=== PATIENT | male | born 1990 | race Caucasian/White ===

== ENCOUNTER 2017-09-19 11:10 | Emergency (ER) | payer OTHER ==
[~2017-09-19] VITALS: Ht 190.5 cm; Wt 108.9 kg
[~2017-09-19 11:10] MED LIST: ACET500; AMOCLA500 PO; AMOX500 PO; ATOM10 MT; Amoxicillin500 MG PO; Bactrim Ds Tab1 EACH PO; CEPH500 PO; CYCL10 PO; ESCI20; HYDACE5 PO; HYDACE5325 PO; HYDGUAL120 PO; IBUP400 PO; NAPR500 PO; PENVK500 PO; PRED10 PO; PRED20 PO; PROM25 PO; RXAMOX500 PO; RXHYD5325 PO; SODPHOSO PR; Zofran Odt4 MG SL; Zofran Odt8 MG SL
[2017-09-19] MEDS ORDERED: CRUTCH4 XX (12:31)
[2017-09-19] MEDS ORDERED: IBUP800 PO (12:31)
== END 2017-09-19 12:42 | disposition home or self-care (01) ==
LOC: ER 11:10
DX: M25.562 Pain in left knee (principal); F17.210 Nicotine dependence, cigarettes, uncomplicated; W01.0XXA Fall on same level from slipping, tripping and stumbling without subsequent striking against object, initial encounter; Y99.0 Civilian activity done for income or pay
CPT/HCPCS: 73564; 99283

== ENCOUNTER 2018-03-13 20:57 | Emergency (ER) | payer OTHER ==
[~2018-03-13] VITALS: Ht 190.5 cm; Wt 108.9 kg
[~2018-03-13 20:57] MED LIST changes: +CRUTCH4 XX; +IBUP800 PO
[2018-03-13] MEDS ORDERED: Veetids 500500 MG PO (23:59)
== END 2018-03-14 00:40 | disposition home or self-care (01) ==
LOC: ER 20:57
DX: K08.89 Other specified disorders of teeth and supporting structures (principal); F17.210 Nicotine dependence, cigarettes, uncomplicated
CPT/HCPCS: 96372; 99282; J1885

== ENCOUNTER 2018-07-04 09:52 | Emergency (ER) | payer OTHER ==
[~2018-07-04] VITALS: Ht 188 cm; Wt 112.9 kg
[~2018-07-04 09:52] MED LIST changes: +Veetids 500500 MG PO
[2018-07-04] MEDS ORDERED: Cephalexin500 M1 PO (11:22)
[2018-07-04] MEDS ORDERED: Bactrim Ds Tab1 EACH PO (11:22)
== END 2018-07-04 11:28 | disposition home or self-care (01) ==
LOC: ER 09:52
DX: L02.412 Cutaneous abscess of left axilla (principal); F17.210 Nicotine dependence, cigarettes, uncomplicated
CPT/HCPCS: 10060; 99283-25

== ENCOUNTER 2018-07-17 01:53 | Emergency (ER) | payer OTHER ==
[~2018-07-17] VITALS: Ht 190.5 cm; Wt 106.6 kg
[~2018-07-17 01:53] MED LIST changes: +Cephalexin500 M1 PO
== END 2018-07-17 02:30 | disposition home or self-care (01) ==
LOC: ER 01:53
DX: K08.89 Other specified disorders of teeth and supporting structures (principal); Z79.899 Other long term (current) drug therapy; F17.210 Nicotine dependence, cigarettes, uncomplicated
CPT/HCPCS: 96372; 99282-25; J1885

== ENCOUNTER 2019-03-01 03:32 | Emergency (ER) | payer OTHER ==
[~2019-03-01] VITALS: Ht 190.5 cm; Wt 106.6 kg
[2019-03-01] MEDS ORDERED: Veetids 500500 MG PO (04:11)
== END 2019-03-01 04:29 | disposition home or self-care (01) ==
LOC: ER 03:32
DX: K08.89 Other specified disorders of teeth and supporting structures (principal); F17.210 Nicotine dependence, cigarettes, uncomplicated
CPT/HCPCS: 96372; 99282-25; J1885

== ENCOUNTER 2019-08-13 09:53 | Emergency (ER) | payer OTHER ==
[~2019-08-13] VITALS: Ht 190.5 cm; Wt 108.9 kg
== END 2019-08-13 10:36 | disposition home or self-care (01) ==
LOC: ER 09:53
DX: H00.012 Hordeolum externum right lower eyelid (principal); F17.210 Nicotine dependence, cigarettes, uncomplicated
CPT/HCPCS: 99283

== ENCOUNTER 2019-12-19 19:30 | Emergency (ER) | payer OTHER ==
[~2019-12-19] VITALS: Ht 190.5 cm; Wt 108.9 kg
[2019-12-19] MEDS ORDERED: Monodox100 MG PO (20:25)
== END 2019-12-19 20:32 | disposition home or self-care (01) ==
LOC: ER 19:30
DX: L02.411 Cutaneous abscess of right axilla (principal); F17.210 Nicotine dependence, cigarettes, uncomplicated
CPT/HCPCS: 10060; 99282-25

== ENCOUNTER 2020-03-26 20:46 | Emergency (ER) | payer OTHER ==
[~2020-03-26] VITALS: Ht 190.5 cm; Wt 108.9 kg
[~2020-03-26 20:46] MED LIST changes: +Monodox100 MG PO
== END 2020-03-27 00:05 | disposition home or self-care (01) ==
LOC: ER 20:46
DX: L02.411 Cutaneous abscess of right axilla (principal); F17.210 Nicotine dependence, cigarettes, uncomplicated
CPT/HCPCS: 10060; 87070; 87075; 87077; 87186; 87205; 99283-25; A9270

== ENCOUNTER 2020-04-25 06:44 | Emergency (ER) | payer OTHER ==
[~2020-04-25] VITALS: Ht 190.5 cm; Wt 102.1 kg
[2020-04-25] MEDS ORDERED: IBUP400 PO (07:30)
[2020-04-25] MEDS ORDERED: PENVK500 PO (07:30)
== END 2020-04-25 07:47 | disposition home or self-care (01) ==
LOC: ER 06:44
DX: K08.89 Other specified disorders of teeth and supporting structures (principal); F17.210 Nicotine dependence, cigarettes, uncomplicated
CPT/HCPCS: 64400; 96372-59; 99282-25; J0696

== ENCOUNTER 2021-02-11 22:44 | Emergency (ER) | payer OTHER ==
[~2021-02-11] VITALS: Ht 190.5 cm; Wt 108.9 kg
[2021-02-12] MEDS ORDERED: AMOX-CLAV 500-1 EAC5 PO (03:29)
== END 2021-02-12 05:06 | disposition home or self-care (01) ==
LOC: ER 22:44
DX: K04.7 Periapical abscess without sinus (principal)
CPT/HCPCS: 10160; 99283-25

== ENCOUNTER → 2021-02-27 | Outpatient (CLI) | payer OTHER ==
[~2021-02-27] MED LIST changes: +AMOX-CLAV 500-1 EAC5 PO
[2021-02-27 13:55] LABS: Percent Saturation 24.9 % (20.0-50.0)
== END | disposition home or self-care (01) ==
LOC: LAB 10:44 → LAB SHORT 10:44
PROVIDERS: Physician Assistant
DX: F41.8 Other specified anxiety disorders (principal); F34.1 Dysthymic disorder; D64.9 Anemia, unspecified; D50.9 Iron deficiency anemia, unspecified
CPT/HCPCS: 82306; 82728; 83540; 83550

== ENCOUNTER 2021-11-06 21:44 | Emergency (ER) | payer OTHER ==
[~2021-11-06] VITALS: Ht 190.5 cm; Wt 111.1 kg
[~2021-11-06 21:44] MED LIST changes: +ABILIFY MYCITE5 M2 PO; +ACET500 PO; +ALBU90OI INH; +BUPR75 PO; +ONDA4ODT MM; +OXYC5 PO; +Robaxin750 MG PO; +Vitamin D1000 UNI1 PO
[2021-11-06] MEDS ORDERED: Monodox100 MG PO (23:12)
[2021-11-06] MEDS ORDERED: MUPIROCIN1 GM TOP (23:12)
== END 2021-11-06 23:28 | disposition home or self-care (01) ==
LOC: ER 21:44
DX: L03.113 Cellulitis of right upper limb (principal); Z79.899 Other long term (current) drug therapy; F17.210 Nicotine dependence, cigarettes, uncomplicated
CPT/HCPCS: 99282; A9270

== ENCOUNTER 2022-11-10 18:10 | Emergency (ER) | payer OTHER ==
[~2022-11-10] VITALS: Ht 190.5 cm; Wt 111.1 kg
[~2022-11-10 18:10] MED LIST changes: +MUPIROCIN1 GM TOP
[2022-11-10 18:19] VITALS: BP 130/76
[2022-11-10] MEDS ORDERED: CEPH500 PO (18:41)
== END 2022-11-10 18:50 | disposition home or self-care (01) ==
LOC: ER 18:10
DX: L02.412 Cutaneous abscess of left axilla (principal); F17.210 Nicotine dependence, cigarettes, uncomplicated
CPT/HCPCS: A9270

== ENCOUNTER 2023-01-19 02:46 | Emergency (ER) | payer OTHER ==
[~2023-01-19] VITALS: Ht 190.5 cm; Wt 111.1 kg
[~2023-01-19 02:46] MED LIST changes: +ALLEGRA ALLERGY60 MG PO; +EPIPEN0.3 MG/0.1 IM; +EPIPEN0.3 MG/0.3 IM; +Prednisone20 MG PO
[2023-01-19 03:03] VITALS: BP 123/85
[2023-01-19 03:26] LABS: BASOPHILS ABSOLUTE AUTO 0.04 K/mm3 (0.00-0.23); BASOPHILS PERCENT AUTO 0 % (0-2); EOSINOPHILS ABSOLUTE AUTO 0.23 K/mm3 (0.00-0.68); EOSINOPHILS PERCENT AUTO 3 % (0-6); Hematocrit 36.8 % (37.0-53.0); Hemoglobin 11.7 g/dL (13.5-17.5); IMMATURE GRAN ABSOLUTE AUTO 0.04 K/mm3 (0.00-0.10); IMMATURE GRAN PERCENT AUTO 0 % (0-1); LYMPHOCYTES PERCENT AUTO 27 % (21-46); MONOCYTES ABSOLUTE AUTO 0.58 K/mm3 (0.16-1.47); MONOCYTES PERCENT AUTO 7 % (4-13); Mean Corpuscular HGB 21.2 pg (26.0-34.0); Mean Corpuscular HGB Conc 31.8 g/dL (31.5-36.5); Mean Corpuscular Volume 67 fL (80-100); NEUTROPHILS ABSOLUTE AUTO 5.63 K/mm3 (1.96-9.15); NEUTROPHILS PERCENT AUTO 63 % (41-73); Platelet Count 256 K/mm3 (150-400); RDW Coefficient Variation 14.8 % (11.7-14.2); RDW Standard Deviation 34.4 fL (35.1-46.3); Red Blood Cell Count 5.52 M/mm3 (4.30-5.90); White Blood Cell Count 8.92 K/mm3 (4.00-11.30)
[2023-01-19 03:27] LABS: Source, Urine Voided
[2023-01-19 03:57] LABS: Albumin, Blood 3.6 g/dL (3.4-5.0); Bilirubin, Total 0.3 mg/dL (0.1-1.0); Bun/Creatinine Ratio 16.5 (12.0-20.0); Calcium, Blood 8.3 mg/dL (8.5-10.1); Creatinine, Blood 0.91 mg/dL (0.60-1.20); Globulin, Blood 3.6 g/dL (2.2-4.0); Potassium, Blood 3.9 mmol/L (3.5-5.5); Total Protein, Blood 7.2 g/dL (6.4-8.2)
[2023-01-19 04:00] LABS: Bilirubin, Urine Neg (Neg); Blood, Urine Neg (Neg); Glucose Qualitative, Urine Neg (Neg); Ketones, Urine 1+ (Neg); Leukocyte Esterase, Urine Neg (Neg); Nitrite, Urine Neg (Neg); Protein, Urine 1+ (Neg); Specific Gravity, Urine 1.025 (1.003-1.022); Urobilinogen, Urine 1+ (Normal)
[2023-01-19 04:05] LABS: Appearance, Urine Clear (Clear); Color, Urine Yellow (P-Yellow)
[2023-01-19] MEDS ORDERED: OXYACE7.5T PO (22:09)
== END 2023-01-19 06:01 | disposition home or self-care (01) ==
LOC: ER 02:46
PROVIDERS: Student in an Organized Health Care Education/Training Program
DX: S30.1XXA Contusion of abdominal wall, initial encounter (principal); F17.210 Nicotine dependence, cigarettes, uncomplicated; X58.XXXA Exposure to other specified factors, initial encounter; R19.09 Other intra-abdominal and pelvic swelling, mass and lump; D68.00 Von Willebrand disease, unspecified; W22.8XXA Striking against or struck by other objects, initial encounter
CPT/HCPCS: 74177; 76705; 80053; 83690; 85025; 86850; 86900; 86901; 96361; 96374-59; 96375; 96376; 99284-25; A9270; J1170; J1885; J2405; J3010; J7030; Q9967

== ENCOUNTER 2024-07-25 10:02 | Emergency (ER) | payer OTHER ==
[~2024-07-25] VITALS: Ht 190.5 cm; Wt 106.6 kg
[~2024-07-25 10:02] MED LIST changes: +OXYACE7.5T PO
[2024-07-25 10:22] VITALS: BP 117/79
[2024-07-25 10:42] LABS: BASOPHILS ABSOLUTE AUTO 0.02 K/mm3 (0.00-0.23); BASOPHILS PERCENT AUTO 0 % (0-2); EOSINOPHILS ABSOLUTE AUTO 0.13 K/mm3 (0.00-0.68); EOSINOPHILS PERCENT AUTO 3 % (0-6); Hematocrit 34.8 % (37.0-53.0); Hemoglobin 11.1 g/dL (13.5-17.5); IMMATURE GRAN ABSOLUTE AUTO 0.03 K/mm3 (0.00-0.10); IMMATURE GRAN PERCENT AUTO 1 % (0-1); LYMPHOCYTES ABSOLUTE AUTO 1.06 K/mm3 (0.84-5.20); LYMPHOCYTES PERCENT AUTO 23 % (21-46); MONOCYTES ABSOLUTE AUTO 0.51 K/mm3 (0.16-1.47); MONOCYTES PERCENT AUTO 11 % (4-13); Mean Corpuscular HGB 21.2 pg (26.0-34.0); Mean Corpuscular HGB Conc 31.9 g/dL (31.5-36.5); Mean Corpuscular Volume 66 fL (80-100); Mean Platelet Volume 9.9 fL (9.1-12.4); NEUTROPHILS ABSOLUTE AUTO 2.81 K/mm3 (1.96-9.15); NEUTROPHILS PERCENT AUTO 62 % (41-73); Platelet Count 218 K/mm3 (150-400); RDW Coefficient Variation 15.1 % (11.7-14.2); RDW Standard Deviation 34.5 fL (35.1-46.3); Red Blood Cell Count 5.24 M/mm3 (4.30-5.90); White Blood Cell Count 4.56 K/mm3 (4.00-11.30)
[2024-07-25 11:23] LABS: Albumin, Blood 3.8 g/dL (3.4-5.0); Bilirubin, Total 0.5 mg/dL (0.1-1.0); Bun/Creatinine Ratio 14.5 (12.0-20.0); Creatinine, Blood 0.96 mg/dL (0.60-1.20); Globulin, Blood 3.9 g/dL (2.2-4.0); Total Protein, Blood 7.7 g/dL (6.4-8.2)
[2024-07-25] MEDS ORDERED: OXYC5 PO (12:59)
== END 2024-07-25 13:03 | disposition home or self-care (01) ==
LOC: ER 10:02
PROVIDERS: Physician Assistant
DX: R10.12 Left upper quadrant pain (principal); K43.2 Incisional hernia without obstruction or gangrene; C34.92 Malignant neoplasm of unspecified part of left bronchus or lung; C79.51 Secondary malignant neoplasm of bone; Z98.890 Other specified postprocedural states
CPT/HCPCS: 71260; 74177; 80053; 85025; 99284-25; Q9967

== ENCOUNTER 2024-08-09 11:48 | Emergency (ER) | payer OTHER ==
[~2024-08-09] VITALS: Ht 190.5 cm; Wt 110.2 kg
[2024-08-09 11:59] VITALS: BP 133/84
[2024-08-09] MEDS ORDERED: Ativan1 MG PO ×2 (12:04)
[2024-08-09 12:44] LABS: Hematocrit 29.7 % (37.0-53.0); Hemoglobin 9.6 g/dL (13.5-17.5); Mean Corpuscular HGB 21.2 pg (26.0-34.0); Mean Corpuscular HGB Conc 32.3 g/dL (31.5-36.5); Mean Corpuscular Volume 66 fL (80-100); Mean Platelet Volume 9.7 fL (9.1-12.4); Platelet Count 125 K/mm3 (150-400); RDW Coefficient Variation 13.7 % (11.7-14.2); RDW Standard Deviation 32.4 fL (35.1-46.3); Red Blood Cell Count 4.52 M/mm3 (4.30-5.90)
[2024-08-09 12:47] LABS: BASOPHILS ABSOLUTE AUTO 0.01 K/mm3 (0.00-0.23); BASOPHILS PERCENT AUTO 2 % (0-2); EOSINOPHILS ABSOLUTE AUTO 0.07 K/mm3 (0.00-0.68); EOSINOPHILS PERCENT AUTO 15 % (0-6); IMMATURE GRAN PERCENT AUTO 0 % (0-1); LYMPHOCYTES ABSOLUTE AUTO 0.26 K/mm3 (0.84-5.20); LYMPHOCYTES PERCENT AUTO 57 % (21-46); MONOCYTES ABSOLUTE AUTO 0.03 K/mm3 (0.16-1.47); MONOCYTES PERCENT AUTO 7 % (4-13); NEUTROPHILS ABSOLUTE AUTO 0.09 K/mm3 (1.96-9.15); NEUTROPHILS PERCENT AUTO 20 % (41-73); White Blood Cell Count 0.46 K/mm3 (4.00-11.30)
[2024-08-09 13:09] LABS: BASOPHILS ABSOLUTE MAN 0.01 K/mm3 (0.00-0.23); BASOPHILS PERCENT MAN 4 % (0-2); EOSINOPHILS ABSOLUTE MAN 0.11 K/mm3 (0.00-0.68); EOSINOPHILS PERCENT MAN 24 % (0-6); LYMPHOCYTES ABSOLUTE MAN 0.16 K/mm3 (0.84-5.20); LYMPHOCYTES PERCENT MAN 36 % (21-46); MONOCYTES ABSOLUTE MAN 0.05 K/mm3 (0.16-1.47); MONOCYTES PERCENT MAN 12 % (4-13); NEUTROPHILS ABSOLUTE MAN 0.11 K/mm3 (1.96-9.15); SEG NEUTROPHILS PERCENT MAN 24 % (41-73); TOTAL CELLS COUNTED 25
[2024-08-09 13:36] LABS: Acetaminophen, Random <2.0 ug/mL (10.0-30.0); Alanine Aminotransfer (ALT/SGP 56 U/L (12-78); Albumin, Blood 3.8 g/dL (3.4-5.0); Albumin/Globulin Ratio 1.1 (0.8-1.8); Alk Phos 62 U/L (50-136); Anion Gap 12 mmol/L (3-11); Aspartate Aminotrans (AST/SGOT 17 U/L (12-37); Bilirubin, Total 0.6 mg/dL (0.1-1.0); Blood Urea Nitrogen 18 mg/dL (8-24); CO2, Blood 24 mmol/L (21-32); Calcium, Blood 8.9 mg/dL (8.5-10.1); Chloride, Blood 109 mmol/L (98-108); Creatinine, Blood 0.72 mg/dL (0.60-1.20); Ethanol (Alcohol), Blood, Med <3 mg/dL; Globulin, Blood 3.6 g/dL (2.2-4.0); Glomerular Filtration Rate 122 (60-); Glucose, Blood 98 mg/dL (70-99); Salicylate <1.7 mg/dL (2.8-20.0); Sodium, Blood 141 mmol/L (136-145); Total Protein, Blood 7.4 g/dL (6.4-8.2)
[2024-08-11] MEDS ORDERED: AMOCLA875 PO ×2 (11:57)
[2024-08-11] MEDS ORDERED: CIPR750 PO ×2 (11:58)
== END 2024-08-09 15:13 | disposition home or self-care (01) ==
LOC: ER 11:48
PROVIDERS: Physician Assistant
DX: R45.851 Suicidal ideations (principal); F17.210 Nicotine dependence, cigarettes, uncomplicated; Z79.899 Other long term (current) drug therapy
CPT/HCPCS: 36415; 80053; 80320; 85025; 99284; G0480

== ENCOUNTER 2024-08-10 20:53 | Observation (INO) | payer OTHER ==
[~2024-08-10] VITALS: Ht 190.5 cm; Wt 111.1 kg
[~2024-08-10 20:53] MED LIST changes: +Ativan1 MG PO
[2024-08-10 21:32] LABS: Hematocrit 30.1 % (37.0-53.0); Hemoglobin 9.9 g/dL (13.5-17.5); Mean Corpuscular HGB 21.2 pg (26.0-34.0); Mean Corpuscular HGB Conc 32.9 g/dL (31.5-36.5); Mean Corpuscular Volume 65 fL (80-100); Mean Platelet Volume 10.1 fL (9.1-12.4); Platelet Count 128 K/mm3 (150-400); RDW Coefficient Variation 13.6 % (11.7-14.2); Red Blood Cell Count 4.67 M/mm3 (4.30-5.90)
[2024-08-10 21:38] LABS: White Blood Cell Count 0.43 K/mm3 (4.00-11.30)
[2024-08-10 21:47] LABS: Bilirubin, Total 0.6 mg/dL (0.1-1.0); Bun/Creatinine Ratio 21.7 (12.0-20.0); Creatinine, Blood 0.79 mg/dL (0.60-1.20); Potassium, Blood 3.5 mmol/L (3.5-5.5)
[2024-08-10 22:01] LABS: BASOPHILS PERCENT MAN 0 % (0-2); EOSINOPHILS PERCENT MAN 0 % (0-6); LYMPHOCYTES ABSOLUTE MAN 0.39 K/mm3 (0.84-5.20); LYMPHOCYTES PERCENT MAN 92 % (21-46); MONOCYTES ABSOLUTE MAN 0.01 K/mm3 (0.16-1.47); MONOCYTES PERCENT MAN 4 % (4-13); NEUTROPHILS ABSOLUTE MAN 0.01 K/mm3 (1.96-9.15); SEG NEUTROPHILS PERCENT MAN 4 % (41-73); TOTAL CELLS COUNTED 25
[2024-08-10] MEDS ORDERED: Meropenem 1,000 MG in NS 100 ML IV ONE (22:10)
[2024-08-10] MEDS ORDERED: Acetaminophen 500 MG Tab PO ONE (22:30)
[2024-08-10] MEDS ORDERED: NS 1,000 ML IV SCH (22:55)
[2024-08-10 23:12] LABS: Adenovirus Detected (NOT DETECT); Bordetella pertussis Not Detected (NOT DETECT); Chlamydophila pneumoniae Not Detected (NOT DETECT); Coronavirus 229E Not Detected (NOT DETECT); Coronavirus HKU1 Not Detected (NOT DETECT); Coronavirus NL63 Not Detected (NOT DETECT); Coronavirus OC43 Not Detected (NOT DETECT); Human Metapneumovirus Not Detected (NOT DETECT); Human Rhinovirus/Enterovirus Not Detected (NOT DETECT); Influenza A/2009-H1 Not Detected (NOT DETECT); Influenza A/H1 Not Detected (NOT DETECT); Influenza A/H3 Not Detected (NOT DETECT); Influenza B Not Detected (NOT DETECT); Mycoplasma pneumoniae Not Detected (NOT DETECT); Parainfluenza Virus 1 Not Detected (NOT DETECT); Parainfluenza Virus 2 Not Detected (NOT DETECT); Parainfluenza Virus 3 Not Detected (NOT DETECT); Parainfluenza Virus 4 Not Detected (NOT DETECT); Respiratory Syncytial Virus Not Detected (NOT DETECT); SARS-Cov-2 (COVID-19), BioFire Not Detected (NOT DETECT)
[2024-08-10 23:47] LABS: Source, Urine Clean Catch
[2024-08-10 23:50] LABS: Bilirubin, Urine Neg (Neg); Blood, Urine Neg (Neg); Glucose Qualitative, Urine Neg (Neg); Ketones, Urine Neg (Neg); Leukocyte Esterase, Urine Neg (Neg); Nitrite, Urine Neg (Neg); Protein, Urine Neg (Neg); Specific Gravity, Urine 1.025 (1.003-1.022); Urobilinogen, Urine NORM (Normal)
[2024-08-10 23:53] LABS: Appearance, Urine Clear (Clear); Color, Urine Yellow (P-Yellow)
[2024-08-11] MEDS ORDERED: LORazepam 1 MG Tab PO PRN (00:40)
[2024-08-11] MEDS ORDERED: Melatonin 3 MG Tab PO PRN (00:45)
[2024-08-11] MEDS ORDERED: Magnesium Hydroxide Conc 10 ML UDC PO PRN (00:45)
[2024-08-11 05:29] LABS: Hematocrit 27.3 % (37.0-53.0); Hemoglobin 8.9 g/dL (13.5-17.5); Mean Corpuscular HGB 21.3 pg (26.0-34.0); Mean Corpuscular HGB Conc 32.6 g/dL (31.5-36.5); Mean Corpuscular Volume 65 fL (80-100); Mean Platelet Volume 9.6 fL (9.1-12.4); Platelet Count 77 K/mm3 (150-400); RDW Coefficient Variation 13.3 % (11.7-14.2); RDW Standard Deviation 31.5 fL (35.1-46.3); Red Blood Cell Count 4.18 M/mm3 (4.30-5.90)
[2024-08-11 05:37] LABS: BASOPHILS PERCENT AUTO 0 % (0-2); EOSINOPHILS ABSOLUTE AUTO 0.03 K/mm3 (0.00-0.68); EOSINOPHILS PERCENT AUTO 6 % (0-6); IMMATURE GRAN PERCENT AUTO 0 % (0-1); LYMPHOCYTES ABSOLUTE AUTO 0.38 K/mm3 (0.84-5.20); LYMPHOCYTES PERCENT AUTO 79 % (21-46); MONOCYTES ABSOLUTE AUTO 0.05 K/mm3 (0.16-1.47); MONOCYTES PERCENT AUTO 10 % (4-13); NEUTROPHILS ABSOLUTE AUTO 0.02 K/mm3 (1.96-9.15); NEUTROPHILS PERCENT AUTO 4 % (41-73)
[2024-08-11 05:38] LABS: White Blood Cell Count 0.48 K/mm3 (4.00-11.30)
[2024-08-11 06:23] LABS: Percent Saturation 52.9 % (20.0-50.0)
[2024-08-11 06:24] LABS: Albumin, Blood 3.6 g/dL (3.4-5.0); Bilirubin, Total 0.6 mg/dL (0.1-1.0); Bun/Creatinine Ratio 18.3 (12.0-20.0); Calcium, Blood 8.8 mg/dL (8.5-10.1); Creatinine, Blood 0.76 mg/dL (0.60-1.20); Globulin, Blood 3.6 g/dL (2.2-4.0); Potassium, Blood 3.7 mmol/L (3.5-5.5); Total Protein, Blood 7.2 g/dL (6.4-8.2)
[2024-08-11] MEDS ORDERED: Meropenem 1,000 MG in NS 100 ML IV SCH (08:00)
[2024-08-11] MEDS ORDERED: Lactobacil 2-S.Thermo-Bifido 1 1 Cap PO SCH (09:00)
[2024-08-11] MEDS ORDERED: Sennosides 8.6 MG Tab PO SCH (09:00)
[2024-08-11] MEDS ORDERED: Enoxaparin 40 MG/0.4 ML SYR SC SCH (09:00)
[2024-08-11 09:20] VITALS: BP 116/68
--- NOTE | 2024-08-11 10:28 | NUR ---
PT ARRIVED TO ROOM AOX4 AND COOPERATIVE OF CARE. PT SETTLED INTO ROOM DENIED ANY PAIN OR CURRENT NEEDS. INDEPENDENT IN ROOM AND CALL LIGHT WITHIN REACH. WILL CONTINUE TO MONITOR.
[2024-08-11] MEDS ORDERED: AMOCLA875 PO (11:57)
[2024-08-11] MEDS ORDERED: CIPR750 PO (11:58)
--- NOTE | 2024-08-11 12:28 | NUR ---
PT DISCHARGED AT 1210. ALL PAPERWORK REVIEWED AND EDUCATIONAL MATERIAL SENT. PT HAS BEEN AOX4 AND COOPERATIVE OF CARE. PT REFUSED WHEELCHAIR ESCORT AND WALKED OUT WITH HIS FATHER TO TRANSPORT HIM HOME.
== END 2024-08-11 12:14 | disposition home or self-care (01) ==
LOC: ER 20:53 → MEDS 20:54 → ER 08-11 01:02 → ERHOLD 08-11 01:02 → MEDS 08-11 08:52 → ERHOLD 08-11 09:10 → MEDS 08-11 09:10
PROVIDERS: Emergency Medicine; Family Medicine; Physician Assistant; ADMIT Student in an Organized Health Care Education/Training Program
DX: D70.9 Neutropenia, unspecified (principal); R50.81 Fever presenting with conditions classified elsewhere; D68.00 Von Willebrand disease, unspecified; C49.9 Malignant neoplasm of connective and soft tissue, unspecified; C78.00 Secondary malignant neoplasm of unspecified lung; F17.210 Nicotine dependence, cigarettes, uncomplicated; Z79.899 Other long term (current) drug therapy; Z91.038 Other insect allergy status
CPT/HCPCS: 0202U; 36415; 71045; 80053; 81003; 82728; 83540; 83550; 83605; 84145; 85025; 87040; 96365; 96366; 96372; 96376; 99285-25; A9270; G0378; J1650; J2185; J7030

== ENCOUNTER 2024-08-20 00:45 | Day surgery (SDC) | payer OTHER ==
[~2024-08-20 00:45] MED LIST changes: +AMOCLA875 PO; +CIPR750 PO
[2024-08-20 14:17] VITALS: BP 145/87
[2024-08-20] MEDS ORDERED: HYDROCODONE-AC1 EA19 PO (14:29)
[2024-08-20] MEDS ORDERED: PROC5 PO (14:31)
[2024-08-20] MEDS ORDERED: ONDA4ODT (14:32)
[2024-08-20 15:04] LABS: BASOPHILS ABSOLUTE AUTO 0.01 K/mm3 (0.00-0.23); BASOPHILS PERCENT AUTO 0 % (0-2); EOSINOPHILS ABSOLUTE AUTO 0.01 K/mm3 (0.00-0.68); EOSINOPHILS PERCENT AUTO 0 % (0-6); Hematocrit 27.7 % (37.0-53.0); IMMATURE GRAN ABSOLUTE AUTO 0.19 K/mm3 (0.00-0.10); IMMATURE GRAN PERCENT AUTO 5 % (0-1); LYMPHOCYTES ABSOLUTE AUTO 0.74 K/mm3 (0.84-5.20); LYMPHOCYTES PERCENT AUTO 18 % (21-46); MONOCYTES PERCENT AUTO 12 % (4-13); Mean Corpuscular HGB 21.4 pg (26.0-34.0); Mean Corpuscular HGB Conc 32.5 g/dL (31.5-36.5); Mean Corpuscular Volume 66 fL (80-100); Mean Platelet Volume 9.1 fL (9.1-12.4); NEUTROPHILS ABSOLUTE AUTO 2.58 K/mm3 (1.96-9.15); NEUTROPHILS PERCENT AUTO 64 % (41-73); NRBC ABSOLUTE 0.03 K/mm3 (0.00-0.02); NRBC Auto 0.7 /100 WBC (0.0-0.2); Platelet Count 312 K/mm3 (150-400); RDW Coefficient Variation 13.5 % (11.7-14.2); RDW Standard Deviation 31.3 fL (35.1-46.3); White Blood Cell Count 4.03 K/mm3 (4.00-11.30)
[2024-08-20 15:27] LABS: Albumin, Blood 3.7 g/dL (3.4-5.0); Bilirubin, Total 0.3 mg/dL (0.1-1.0); Bun/Creatinine Ratio 16.8 (12.0-20.0); Calcium, Blood 8.9 mg/dL (8.5-10.1); Creatinine, Blood 0.66 mg/dL (0.60-1.20); Globulin, Blood 3.8 g/dL (2.2-4.0); Potassium, Blood 3.8 mmol/L (3.5-5.5); Total Protein, Blood 7.5 g/dL (6.4-8.2)
--- NOTE | 2024-08-20 18:07 | NUR ---
LAB RESULTS FROM TODAY FAXED TO DR. GLASS'S OFFICE.
== END 2024-08-20 14:36 | disposition home or self-care (01) ==
LOC: ATC 00:45
PROVIDERS: Registered Nurse Oncology
DX: C47 Malignant neoplasm of peripheral nerves and autonomic nervous system (principal); Z87.891 Personal history of nicotine dependence; Z91.030 Bee allergy status
CPT/HCPCS: 36591; 80053; 85025; J1642

== ENCOUNTER 2024-09-02 21:03 | Observation (INO) | payer OTHER ==
[~2024-09-02] VITALS: Ht 190.5 cm; Wt 103.0 kg
[~2024-09-02 21:03] MED LIST changes: +HYDROCODONE-AC1 EA19 PO; +ONDA4ODT; +PROC5 PO
[2024-09-02 22:11] LABS: Hematocrit 18.6 % (37.0-53.0); Hemoglobin 6.2 g/dL (13.5-17.5); Mean Corpuscular HGB 21.6 pg (26.0-34.0); Mean Corpuscular HGB Conc 33.3 g/dL (31.5-36.5); Mean Corpuscular Volume 65 fL (80-100); Mean Platelet Volume 10.3 fL (9.1-12.4); RDW Coefficient Variation 14.1 % (11.7-14.2); RDW Standard Deviation 31.4 fL (35.1-46.3); Red Blood Cell Count 2.87 M/mm3 (4.30-5.90)
[2024-09-02 22:13] LABS: BASOPHILS PERCENT AUTO 0 % (0-2); EOSINOPHILS ABSOLUTE AUTO 0.01 K/mm3 (0.00-0.68); EOSINOPHILS PERCENT AUTO 2 % (0-6); IMMATURE GRAN ABSOLUTE AUTO 0.01 K/mm3 (0.00-0.10); IMMATURE GRAN PERCENT AUTO 2 % (0-1); LYMPHOCYTES ABSOLUTE AUTO 0.29 K/mm3 (0.84-5.20); LYMPHOCYTES PERCENT AUTO 63 % (21-46); MONOCYTES ABSOLUTE AUTO 0.06 K/mm3 (0.16-1.47); MONOCYTES PERCENT AUTO 13 % (4-13); NEUTROPHILS ABSOLUTE AUTO 0.09 K/mm3 (1.96-9.15); NEUTROPHILS PERCENT AUTO 20 % (41-73)
[2024-09-02 22:14] LABS: White Blood Cell Count 0.46 K/mm3 (4.00-11.30)
[2024-09-02 22:15] LABS: Platelet Count 40 K/mm3 (150-400)
[2024-09-02] MEDS ORDERED: Cefepime HCl 2,000 MG in NS 100 ML IV ONE (22:25)
[2024-09-02 22:30] LABS: Albumin, Blood 3.6 g/dL (3.4-5.0); Albumin/Globulin Ratio 0.9 (0.8-1.8); Bilirubin, Total 0.5 mg/dL (0.1-1.0); Bun/Creatinine Ratio 18.9 (12.0-20.0); Calcium, Blood 8.9 mg/dL (8.5-10.1); Creatinine, Blood 0.79 mg/dL (0.60-1.20); Globulin, Blood 3.9 g/dL (2.2-4.0); Potassium, Blood 3.5 mmol/L (3.5-5.5); Total Protein, Blood 7.5 g/dL (6.4-8.2)
[2024-09-02] MEDS ORDERED: Vancomycin HCL 2,500 MG in NS 500 ML IV ONE (23:00)
[2024-09-02 23:17] LABS: International Normalized Ratio 1.07; Prothrombin Time Results 11.4 Sec (9.7-11.5)
[2024-09-03] VITALS (10 sets, daily range): BP systolic 102–121; BP diastolic 60–71
[2024-09-03 00:15] LABS: Source, Urine Clean Catch
[2024-09-03 00:27] LABS: Appearance, Urine Clear (Clear); Bilirubin, Urine Neg (Neg); Blood, Urine Neg (Neg); Color, Urine Amber (P-Yellow); Glucose Qualitative, Urine Neg (Neg); Ketones, Urine Neg (Neg); Leukocyte Esterase, Urine Neg (Neg); Nitrite, Urine Neg (Neg); Protein, Urine 1+ (Neg); Urobilinogen, Urine NORM (Normal)
[2024-09-03 00:48] LABS: Influenza A, PCR NEGATIVE (NEGATIVE); Influenza B, PCR NEGATIVE (NEGATIVE); Resp Syncytial Virus, PCR NEGATIVE (NEGATIVE); SARS-Cov-2 (COVID-19) PCR, MMC NEGATIVE (NEGATIVE)
[2024-09-03] MEDS ORDERED: NS 1,000 ML IV SCH (02:00)
[2024-09-03] MEDS ORDERED: Acetaminophen 325 MG TABLET PO PRN (02:00)
[2024-09-03] MEDS ORDERED: FLU VACC TS2024-25(6MOS UP)/PF 45 MCG/0.5 ML SYRINGE IM ONE (02:05)
[2024-09-03] MEDS ORDERED: Ondansetron HCl 2 MG / ML 2ML Vial IV PRN (02:05)
[2024-09-03] MEDS ORDERED: ONDA4 PO (03:04)
[2024-09-03] MEDS ORDERED: PROM25 PO (03:05)
[2024-09-03] MEDS ORDERED: PROC5 PO (03:09)
[2024-09-03 07:26] LABS: Hematocrit 19.9 % (37.0-53.0); Hemoglobin 6.5 g/dL (13.5-17.5); Mean Corpuscular HGB 22.4 pg (26.0-34.0); Mean Corpuscular HGB Conc 32.7 g/dL (31.5-36.5); Mean Corpuscular Volume 69 fL (80-100); Mean Platelet Volume 11.6 fL (9.1-12.4); RDW Coefficient Variation 17.2 % (11.7-14.2); RDW Standard Deviation 39.6 fL (35.1-46.3)
[2024-09-03 07:47] LABS: BASOPHILS ABSOLUTE AUTO 0.01 K/mm3 (0.00-0.23); BASOPHILS PERCENT AUTO 2 % (0-2); EOSINOPHILS ABSOLUTE AUTO 0.01 K/mm3 (0.00-0.68); EOSINOPHILS PERCENT AUTO 2 % (0-6); IMMATURE GRAN ABSOLUTE AUTO 0.01 K/mm3 (0.00-0.10); IMMATURE GRAN PERCENT AUTO 2 % (0-1); LYMPHOCYTES ABSOLUTE AUTO 0.28 K/mm3 (0.84-5.20); LYMPHOCYTES PERCENT AUTO 51 % (21-46); MONOCYTES ABSOLUTE AUTO 0.09 K/mm3 (0.16-1.47); MONOCYTES PERCENT AUTO 16 % (4-13); NEUTROPHILS ABSOLUTE AUTO 0.15 K/mm3 (1.96-9.15); NEUTROPHILS PERCENT AUTO 27 % (41-73); Platelet Count 32 K/mm3 (150-400); White Blood Cell Count 0.55 K/mm3 (4.00-11.30)
[2024-09-03 07:50] LABS: Albumin, Blood 3.1 g/dL (3.4-5.0); Albumin/Globulin Ratio 0.8 (0.8-1.8); Bilirubin, Total 0.8 mg/dL (0.1-1.0); Bun/Creatinine Ratio 26.5 (12.0-20.0); Calcium, Blood 8.2 mg/dL (8.5-10.1); Creatinine, Blood 0.64 mg/dL (0.60-1.20); Globulin, Blood 3.8 g/dL (2.2-4.0); Potassium, Blood 3.1 mmol/L (3.5-5.5); Total Protein, Blood 6.9 g/dL (6.4-8.2)
--- NOTE | 2024-09-03 07:55 | NUR ---
SHIFT SUMMARY; AFTER ADMIT, PATIENT SLEPT SOUNDLY, DENIED NEEDING PAIM MEDS, PRBC FINISHED AT 0340. NS/ 100ML/HR RESTARTED. TELE SR 82.PLACED IN REVERSE ISOLATION. FIRST MORNING LABS WERE DRAWN THRU PORT WITH IV FLUIDS RUNNING. FATHER HERE ALL NIGHT.
[2024-09-03] MEDS ORDERED: Cefepime HCl 1,000 MG in NS 100 ML IV SCH (08:00)
[2024-09-03 08:12] LABS: BAND PERCENT MAN 8 % (0-8); BASOPHILS ABSOLUTE MAN 0.02 K/mm3 (0.00-0.23); BASOPHILS PERCENT MAN 4 % (0-2); EOSINOPHILS PERCENT MAN 0 % (0-6); LYMPHOCYTES % ATYPICAL MANUAL 4 % (0-0); LYMPHOCYTES PERCENT MAN 52 % (21-46); MONOCYTES ABSOLUTE MAN 0.04 K/mm3 (0.16-1.47); MONOCYTES PERCENT MAN 8 % (4-13); NEUTROPHILS ABSOLUTE MAN 0.17 K/mm3 (1.96-9.15); SEG NEUTROPHILS PERCENT MAN 24 % (41-73); TOTAL CELLS COUNTED 25
[2024-09-03] MEDS ORDERED: NS 250 ML IV PRN (08:20)
[2024-09-03] MEDS ORDERED: NS 500 ML IV SCH (08:20)
[2024-09-03] MEDS ORDERED: Potassium Chloride 20 MEQ TabCR PO ONE (10:35)
[2024-09-03] MEDS ORDERED: Petrolatum Ointment 5 gm TOP SCH (11:00)
[2024-09-03] MEDS ORDERED: HyDROXyzine HCl 10 MG Tab PO PRN (11:40)
[2024-09-03 13:28] LABS: Hematocrit 21.6 % (37.0-53.0); Hemoglobin 7.3 g/dL (13.5-17.5); Mean Corpuscular HGB 23.2 pg (26.0-34.0); Mean Corpuscular HGB Conc 33.8 g/dL (31.5-36.5); Mean Corpuscular Volume 69 fL (80-100); RDW Coefficient Variation 17.9 % (11.7-14.2); RDW Standard Deviation 42.6 fL (35.1-46.3); Red Blood Cell Count 3.15 M/mm3 (4.30-5.90)
[2024-09-03 13:34] LABS: BASOPHILS ABSOLUTE AUTO 0.01 K/mm3 (0.00-0.23); BASOPHILS PERCENT AUTO 2 % (0-2); EOSINOPHILS ABSOLUTE AUTO 0.01 K/mm3 (0.00-0.68); EOSINOPHILS PERCENT AUTO 2 % (0-6); IMMATURE GRAN ABSOLUTE AUTO 0.01 K/mm3 (0.00-0.10); IMMATURE GRAN PERCENT AUTO 2 % (0-1); LYMPHOCYTES ABSOLUTE AUTO 0.23 K/mm3 (0.84-5.20); LYMPHOCYTES PERCENT AUTO 38 % (21-46); MONOCYTES PERCENT AUTO 16 % (4-13); NEUTROPHILS ABSOLUTE AUTO 0.25 K/mm3 (1.96-9.15); NEUTROPHILS PERCENT AUTO 41 % (41-73)
[2024-09-03 13:37] LABS: Platelet Count 30 K/mm3 (150-400); White Blood Cell Count 0.61 K/mm3 (4.00-11.30)
[2024-09-03 13:56] LABS: Adenovirus Detected (NOT DETECT); Bordetella pertussis Not Detected (NOT DETECT); Chlamydophila pneumoniae Not Detected (NOT DETECT); Coronavirus 229E Not Detected (NOT DETECT); Coronavirus HKU1 Not Detected (NOT DETECT); Coronavirus NL63 Not Detected (NOT DETECT); Coronavirus OC43 Not Detected (NOT DETECT); Human Metapneumovirus Not Detected (NOT DETECT); Human Rhinovirus/Enterovirus Not Detected (NOT DETECT); Influenza A/2009-H1 Not Detected (NOT DETECT); Influenza A/H1 Not Detected (NOT DETECT); Influenza A/H3 Not Detected (NOT DETECT); Influenza B Not Detected (NOT DETECT); Mycoplasma pneumoniae Not Detected (NOT DETECT); Parainfluenza Virus 1 Not Detected (NOT DETECT); Parainfluenza Virus 2 Not Detected (NOT DETECT); Parainfluenza Virus 3 Not Detected (NOT DETECT); Parainfluenza Virus 4 Not Detected (NOT DETECT); Respiratory Syncytial Virus Not Detected (NOT DETECT); SARS-Cov-2 (COVID-19), BioFire Not Detected (NOT DETECT)
--- NOTE | 2024-09-03 19:54 | NUR ---
SHIFT SUMMARY: PT A&O X4. PT VERY ANXIOUS AND IRRITABLE THIS SHIFT. ANXIETY MEDS ORDERED AND PROVIDED THIS SHIFT. PT VERY ANXIOUS TO GO HOME. HOSPITALIST AWARE. HGB LOW WITH AM LABS. 1 UNIT PRBC PROVIDED WITH REPEAT HGB OF 7.3. REPIRATORY PANEL COMPLETED THIS SHIFT. PT POSITIVE FOR ADENOVIRUS. DROPLET AND NEUTROPENIC PRECAUTIONS IN PLACE. PT HAS MEDIPORT INFUSING TKO. INDEPENDENT IN ROOM. CALL LIGHT IN REACH. BED IN LOWEST POSITION. FAMILY AT BEDSIDE.
[2024-09-04 05:38] LABS: BASOPHILS ABSOLUTE AUTO 0.02 K/mm3 (0.00-0.23); BASOPHILS PERCENT AUTO 2 % (0-2); Hematocrit 21.2 % (37.0-53.0); Hemoglobin 7.2 g/dL (13.5-17.5); Mean Corpuscular HGB 23.2 pg (26.0-34.0); Mean Corpuscular Volume 68 fL (80-100); Mean Platelet Volume 11.7 fL (9.1-12.4); RDW Standard Deviation 39.8 fL (35.1-46.3); Red Blood Cell Count 3.11 M/mm3 (4.30-5.90); White Blood Cell Count 1.35 K/mm3 (4.00-11.30)
[2024-09-04 05:46] LABS: EOSINOPHILS ABSOLUTE AUTO 0.01 K/mm3 (0.00-0.68); EOSINOPHILS PERCENT AUTO 1 % (0-6); IMMATURE GRAN ABSOLUTE AUTO 0.02 K/mm3 (0.00-0.10); IMMATURE GRAN PERCENT AUTO 2 % (0-1); LYMPHOCYTES ABSOLUTE AUTO 0.38 K/mm3 (0.84-5.20); LYMPHOCYTES PERCENT AUTO 28 % (21-46); MONOCYTES PERCENT AUTO 15 % (4-13); NEUTROPHILS ABSOLUTE AUTO 0.72 K/mm3 (1.96-9.15); NEUTROPHILS PERCENT AUTO 53 % (41-73)
[2024-09-04 05:50] LABS: Platelet Count 26 K/mm3 (150-400)
[2024-09-04 06:17] LABS: Albumin, Blood 3.1 g/dL (3.4-5.0); Albumin/Globulin Ratio 0.8 (0.8-1.8); Bilirubin, Total 0.3 mg/dL (0.1-1.0); Calcium, Blood 8.4 mg/dL (8.5-10.1); Creatinine, Blood 0.68 mg/dL (0.60-1.20); Globulin, Blood 3.7 g/dL (2.2-4.0); Potassium, Blood 3.5 mmol/L (3.5-5.5); Total Protein, Blood 6.8 g/dL (6.4-8.2)
[2024-09-04 07:42] VITALS: BP 111/70
--- NOTE | 2024-09-04 08:11 | NUR ---
SUMMARY: PT A/OX4, IS INDEPENDENT IN ROOM AND CALLS APPROPRIATELY TO SPECIFY NEEDS. HE BEGAN SHIFT ANXIOUS, TEARFUL AND FRUSTRATED RE: CONTINUED HOSPITALIZATION D/T THE IMPRESSION HE'D BE DISCHARGING TONIGHT. HE CALMED WHEN PROVIDED OPPORTUNITY TO WALK HALLS W/HIS DAD AND UPON ANSWERING Q'S AND CONCERNS REGARDING PLAN OF CARE AND TRENDING LAB VALUES. HGB HAS IMPROVED FOLLOWING RECENT PRBC TRANSFUSIONS BUT PLATELETS CONTINUE FALLING, NOW CRITICAL AT 26. MADE AWARE W/NO NEW ORDERS RECEIVED. HE REMAINS NSR ON TELE AT 70'S-80'S BPM. VSS/AFEBRILE, NO ACUTE CHANGES. PT HOPEFUL TO D/C HOME TODAY. REPORT PROVIDED TO DAY RN.
[2024-09-04 12:12] VITALS: BP 107/62
[2024-09-04 12:31] LABS: Hematocrit 21.1 % (37.0-53.0); Hemoglobin 7.1 g/dL (13.5-17.5); Mean Corpuscular HGB 22.8 pg (26.0-34.0); Mean Corpuscular HGB Conc 33.6 g/dL (31.5-36.5); Mean Corpuscular Volume 68 fL (80-100); RDW Standard Deviation 40.1 fL (35.1-46.3); Red Blood Cell Count 3.11 M/mm3 (4.30-5.90); White Blood Cell Count 1.57 K/mm3 (4.00-11.30)
[2024-09-04 12:47] LABS: Platelet Count 26 K/mm3 (150-400)
[2024-09-04 13:02] LABS: Albumin, Blood 3.1 g/dL (3.4-5.0); Albumin/Globulin Ratio 0.8 (0.8-1.8); Bilirubin, Total 0.2 mg/dL (0.1-1.0); Bun/Creatinine Ratio 20.6 (12.0-20.0); Calcium, Blood 8.9 mg/dL (8.5-10.1); Creatinine, Blood 0.63 mg/dL (0.60-1.20); Globulin, Blood 3.7 g/dL (2.2-4.0); Potassium, Blood 3.8 mmol/L (3.5-5.5); Total Protein, Blood 6.8 g/dL (6.4-8.2)
[2024-09-04 13:47] LABS: BAND PERCENT MAN 6 % (0-8); BASOPHILS ABSOLUTE MAN 0.01 K/mm3 (0.00-0.23); BASOPHILS PERCENT MAN 1 % (0-2); EOSINOPHILS ABSOLUTE MAN 0.03 K/mm3 (0.00-0.68); EOSINOPHILS PERCENT MAN 2 % (0-6); LYMPHOCYTES % ATYPICAL MANUAL 1 % (0-0); LYMPHOCYTES ABSOLUTE MAN 0.39 K/mm3 (0.84-5.20); LYMPHOCYTES PERCENT MAN 24 % (21-46); MONOCYTES PERCENT MAN 13 % (4-13); NEUTROPHILS ABSOLUTE MAN 0.92 K/mm3 (1.96-9.15); SEG NEUTROPHILS PERCENT MAN 53 % (41-73); TOTAL CELLS COUNTED 100
--- NOTE | 2024-09-04 15:45 | NUR ---
DISCHARGE NOTE PT DISCHARGED HOME. PT REFUSED W/C OUT. PT ACCOMPANIED BY THIS RN. SHELBY DEACCESSED AND IV REMOVED. REVIEWED MEDICATIONS. CARE ONGOING.
--- NOTE | 2024-09-04 16:19 | NUR ---
PT DISCHARGED HOME AGAINST MEDICAL RECOMMENDATION. PT RECOMMENDED TO STAY ATLEAST ONE ADDITIONAL NIGHT FOR ANTIBIOTIC THERAPY BLOOD CULTURES ARE STILL PENDING. PT VERBALIZED UNDERSTANDING OF THE RISKS OF EARLY D/C, BUT STATED THAT HE WOULD NOT BE STAYING ANY LONGER. DISCHARGE INSTRUCTIONS DISCUSSED WITH PT BY FELLOW RN. PER RN, NO QUESTIONS OR CONCERNS AT TIME OF DISCHARGE.
== END 2024-09-04 15:41 | disposition home or self-care (01) ==
LOC: ER 21:03 → MEDS 21:04 → ERHOLD 09-03 01:58 → MEDS 09-03 01:58 → ER 09-03 01:58 → MEDS 09-03 02:58 → ERHOLD 09-03 02:58 → MEDS 09-04 15:41
PROVIDERS: Family Medicine; Internal Medicine; Registered Nurse; Student in an Organized Health Care Education/Training Program; ADMIT Internal Medicine
DX: D70.9 Neutropenia, unspecified (principal); R50.81 Fever presenting with conditions classified elsewhere; D61.818 Other pancytopenia; D64.9 Anemia, unspecified; D68.00 Von Willebrand disease, unspecified; C34.92 Malignant neoplasm of unspecified part of left bronchus or lung; C79.51 Secondary malignant neoplasm of bone; F17.210 Nicotine dependence, cigarettes, uncomplicated; Z79.899 Other long term (current) drug therapy; Z91.038 Other insect allergy status
CPT/HCPCS: 0202U; 0241U; 36415; 36430; 71046; 80053; 83605; 83880; 85025; 85610; 85730; 86850; 86900; 86901; 86923; 87040; 96365; 96375; 99285-25; A9270; G0378; J0692; J1642; J3370; J7040; J7050; P9016

== ENCOUNTER 2024-09-10 02:20 | Day surgery (SDC) | payer OTHER ==
[~2024-09-10 02:20] MED LIST changes: +ONDA4 PO
[2024-09-10 16:18] VITALS: BP 111/72
[2024-09-10 16:51] LABS: BASOPHILS ABSOLUTE AUTO 0.01 K/mm3 (0.00-0.23); BASOPHILS PERCENT AUTO 0 % (0-2); EOSINOPHILS ABSOLUTE AUTO 0.02 K/mm3 (0.00-0.68); EOSINOPHILS PERCENT AUTO 1 % (0-6); Hemoglobin 7.8 g/dL (13.5-17.5); IMMATURE GRAN ABSOLUTE AUTO 0.31 K/mm3 (0.00-0.10); IMMATURE GRAN PERCENT AUTO 8 % (0-1); LYMPHOCYTES ABSOLUTE AUTO 0.72 K/mm3 (0.84-5.20); LYMPHOCYTES PERCENT AUTO 20 % (21-46); MONOCYTES ABSOLUTE AUTO 0.63 K/mm3 (0.16-1.47); MONOCYTES PERCENT AUTO 17 % (4-13); Mean Corpuscular HGB 22.7 pg (26.0-34.0); Mean Corpuscular HGB Conc 32.5 g/dL (31.5-36.5); Mean Corpuscular Volume 70 fL (80-100); Mean Platelet Volume 9.8 fL (9.1-12.4); NEUTROPHILS ABSOLUTE AUTO 1.98 K/mm3 (1.96-9.15); NEUTROPHILS PERCENT AUTO 54 % (41-73); NRBC ABSOLUTE 0.09 K/mm3 (0.00-0.02); NRBC Auto 2.5 /100 WBC (0.0-0.2); Platelet Count 178 K/mm3 (150-400); RDW Coefficient Variation 18.6 % (11.7-14.2); RDW Standard Deviation 43.4 fL (35.1-46.3); Red Blood Cell Count 3.44 M/mm3 (4.30-5.90); White Blood Cell Count 3.67 K/mm3 (4.00-11.30)
== END 2024-09-10 16:28 | disposition home or self-care (01) ==
LOC: ATC 02:20
PROVIDERS: Registered Nurse Oncology
DX: C47 Malignant neoplasm of peripheral nerves and autonomic nervous system (principal); C78.00 Secondary malignant neoplasm of unspecified lung; D64.9 Anemia, unspecified; Z87.891 Personal history of nicotine dependence; Z79.899 Other long term (current) drug therapy; Z91.038 Other insect allergy status
CPT/HCPCS: 36591; 85025; J1642

== ENCOUNTER 2024-09-24 18:39 | Observation (INO) | payer OTHER ==
[~2024-09-24] VITALS: Ht 190.5 cm; Wt 100.0 kg
[2024-09-24 21:17] LABS: Mean Corpuscular HGB 23.8 pg (26.0-34.0); Mean Corpuscular HGB Conc 33.7 g/dL (31.5-36.5); Mean Corpuscular Volume 70 fL (80-100); Mean Platelet Volume 10.2 fL (9.1-12.4); RDW Standard Deviation 49.2 fL (35.1-46.3)
[2024-09-24 21:21] LABS: BASOPHILS ABSOLUTE AUTO 0.01 K/mm3 (0.00-0.23); BASOPHILS PERCENT AUTO 1 % (0-2); EOSINOPHILS ABSOLUTE AUTO 0.03 K/mm3 (0.00-0.68); EOSINOPHILS PERCENT AUTO 3 % (0-6); IMMATURE GRAN ABSOLUTE AUTO 0.01 K/mm3 (0.00-0.10); IMMATURE GRAN PERCENT AUTO 1 % (0-1); LYMPHOCYTES ABSOLUTE AUTO 0.38 K/mm3 (0.84-5.20); LYMPHOCYTES PERCENT AUTO 38 % (21-46); MONOCYTES ABSOLUTE AUTO 0.16 K/mm3 (0.16-1.47); MONOCYTES PERCENT AUTO 16 % (4-13); NEUTROPHILS PERCENT AUTO 40 % (41-73)
[2024-09-24 21:23] LABS: Hematocrit 16.9 % (37.0-53.0); Hemoglobin 5.7 g/dL (13.5-17.5); Platelet Count 46 K/mm3 (150-400); White Blood Cell Count 0.99 K/mm3 (4.00-11.30)
[2024-09-24 21:38] LABS: Albumin, Blood 3.3 g/dL (3.4-5.0); Albumin/Globulin Ratio 0.9 (0.8-1.8); Bilirubin, Total 0.3 mg/dL (0.1-1.0); Bun/Creatinine Ratio 19.9 (12.0-20.0); Calcium, Blood 8.3 mg/dL (8.5-10.1); Creatinine, Blood 0.65 mg/dL (0.60-1.20); Globulin, Blood 3.7 g/dL (2.2-4.0); Potassium, Blood 3.8 mmol/L (3.5-5.5)
[2024-09-24 22:07] LABS: International Normalized Ratio 1.02; Prothrombin Time Results 10.9 Sec (9.7-11.5)
[2024-09-24] MEDS ORDERED: DiphenhydrAMINE HCl 50 MG/ML 1ML Vial ONE (22:28)
[2024-09-24] MEDS ORDERED: Acetaminophen 500 MG Tab PO ONE (22:35)
[2024-09-24] MEDS ORDERED: Famotidine 10 MG/ML 2ML Vial IV ONE (22:40)
[2024-09-24] MEDS ORDERED: DiphenhydrAMINE HCl 50 MG/ML 1ML Vial IV ONE (22:40)
[2024-09-24] MEDS ORDERED: Ondansetron HCl 2 MG / ML 2ML Vial IV ONE (23:20)
[2024-09-25] MEDS ORDERED: EpiNEPhrine 1 MG/1 ML 1ML Vial IM ONE (00:20)
[2024-09-25] MEDS ORDERED: MethylPREDNISolone Sod Succ 125 MG Vial IV ONE (00:20)
[2024-09-25] MEDS ORDERED: Ondansetron HCl 2 MG / ML 2ML Vial IV ONE (00:20)
[2024-09-25] MEDS ORDERED: Acetaminophen 325 MG TABLET PO PRN (01:00)
[2024-09-25] MEDS ORDERED: Ondansetron HCl 2 MG / ML 2ML Vial IV PRN (01:00)
[2024-09-25] MEDS ORDERED: FLU VACC TS2024-25(6MOS UP)/PF 45 MCG/0.5 ML SYRINGE IM ONE (01:00)
[2024-09-25 03:00] VITALS: BP 106/63
--- NOTE | 2024-09-25 03:00 | NUR ---
ARRIVAL TO UNIT PT ARRIVED TO UNIT VIA GOURNEY FROM ED. PT ABLE TO IND TRANSFER TO BED. FATHER @ BEDSIDE. A&O x4, SOMNOLENT, ANSWERS QUESTIONS APPROPRIATELY. PT DENIES NAUSEA AT THIS TIME, REPORTS EMESIS IN ED. PT ACTIVELY RECEIVING BLOOD PRODUCTS, TOLERATING WELL. VSS, TELE IN USE - NSR @80. PT ORIENTED TO ROOM, NO NEEDS STATED, CALL LIGHT IN REACH.
[2024-09-25] MEDS ORDERED: AMOX-CLAV 875-1 EAC5 PO (03:04)
[2024-09-25] MEDS ORDERED: HYDROCODONE-AC1 EA19 PO (03:05)
[2024-09-25 03:31] VITALS: BP 107/60
[2024-09-25 04:29] VITALS: BP 102/65
--- NOTE | 2024-09-25 04:30 | NUR ---
BLOOD TRANSFUSION BLOOD TRANSFUSION COMPLETE. PT TOLERATED WELL. VSS, LUNG SOUNDS DIMINISHED BILAT IN BASES; OTHERWISE CLEAR THROUGHOUT. APPROX 3 HOURS FOR TOTAL INFUSION TIME.
[2024-09-25 05:22] LABS: Hematocrit 22.6 % (37.0-53.0); Hemoglobin 7.7 g/dL (13.5-17.5); Mean Corpuscular HGB 24.6 pg (26.0-34.0); Mean Corpuscular HGB Conc 34.1 g/dL (31.5-36.5); Mean Corpuscular Volume 72 fL (80-100); Mean Platelet Volume 11.3 fL (9.1-12.4); Platelet Count 69 K/mm3 (150-400); RDW Coefficient Variation 21.1 % (11.7-14.2); RDW Standard Deviation 52.5 fL (35.1-46.3); Red Blood Cell Count 3.13 M/mm3 (4.30-5.90); White Blood Cell Count 1.29 K/mm3 (4.00-11.30)
--- NOTE | 2024-09-25 05:32 | NUR ---
DR CONSULT DR JERONIMO NOTIFIED OF PT MORNING AM LABWORK. CURRENT HEMOGLOBIN @ 7.7 DR ORDERED TO HOLD OFF ON SECOND BLOOD PRODUCT INFUSION. REPEAT LAB WORK @ 1100.
[2024-09-25 05:41] LABS: BAND PERCENT MAN 18 % (0-8); BASOPHILS ABSOLUTE MAN 0.02 K/mm3 (0.00-0.23); BASOPHILS PERCENT MAN 2 % (0-2); EOSINOPHILS PERCENT MAN 0 % (0-6); LYMPHOCYTES ABSOLUTE MAN 0.05 K/mm3 (0.84-5.20); LYMPHOCYTES PERCENT MAN 4 % (21-46); MONOCYTES ABSOLUTE MAN 0.07 K/mm3 (0.16-1.47); MONOCYTES PERCENT MAN 6 % (4-13); NEUTROPHILS ABSOLUTE MAN 1.13 K/mm3 (1.96-9.15); SEG NEUTROPHILS PERCENT MAN 70 % (41-73); TOTAL CELLS COUNTED 50
[2024-09-25 05:59] LABS: Albumin, Blood 3.4 g/dL (3.4-5.0); Albumin/Globulin Ratio 0.9 (0.8-1.8); Bilirubin, Total 0.4 mg/dL (0.1-1.0); Bun/Creatinine Ratio 21.3 (12.0-20.0); Calcium, Blood 8.6 mg/dL (8.5-10.1); Creatinine, Blood 0.75 mg/dL (0.60-1.20); Globulin, Blood 3.9 g/dL (2.2-4.0); Potassium, Blood 4.5 mmol/L (3.5-5.5); Total Protein, Blood 7.3 g/dL (6.4-8.2)
--- NOTE | 2024-09-25 06:13 | NUR ---
SHIFT SUMMARY S/P BLOOD TRANSFUSION. NO ACUTE CHANGES. VSS, TELE IN USE- NSR @ 60. TOLERATING MIN PO INTAKE, NO NAUSEA AT THIS TIME. IV FLUIDS INFUSING PER EMAR. ANTICIPATED REPEAT LABS LATER TODAY TO DETERMINE THE NEED OF FURTHER BLOOD PRODUCTS. PT SBA R/T WEAKNESS. FATHER @ BEDSIDE, VERY INVOLVED c CARE. CALL LIGHT IN REACH, BED IN LOWEST POSITION, WILL REPORT TO DAY RN.
[2024-09-25 07:28] VITALS: BP 102/64
--- NOTE | 2024-09-25 12:59 | NUR ---
DISCHARGE ALL INSTRUCTIONS READ AND SIGNED UNDERSTIANDING, BELONGINGS WITH PTIENT, IV TAKE OUT INTACT. PATIENT LEAVES VIA PRIVATE VEHICLE.
== END 2024-09-25 12:48 | disposition home or self-care (01) ==
LOC: ER 18:39 → MEDS 18:40 → SURS 18:40
PROVIDERS: Student in an Organized Health Care Education/Training Program; ADMIT Student in an Organized Health Care Education/Training Program
DX: T80.89XA Other complications following infusion, transfusion and therapeutic injection, initial encounter (principal); D61.818 Other pancytopenia; D68.00 Von Willebrand disease, unspecified; L50.8 Other urticaria; F17.210 Nicotine dependence, cigarettes, uncomplicated; R00.0 Tachycardia, unspecified; C47 Malignant neoplasm of peripheral nerves and autonomic nervous system; D64.9 Anemia, unspecified; C80.1 Malignant (primary) neoplasm, unspecified; D70.9 Neutropenia, unspecified; Z79.899 Other long term (current) drug therapy; Z91.030 Bee allergy status
CPT/HCPCS: 36415; 36430; 36591; 80053; 85025; 85610; 85730; 86850; 86900; 86901; 86923; 94760; 94762; 96372-59; 96374; 96375; 96376; 99284-25; A9270; G0378; J0171; J1200; J1642; J2405; J2919; P9035; P9040

== ENCOUNTER 2024-10-14 08:05 | Day surgery (SDC) | payer OTHER ==
[2024-10-12 14:25] VITALS: BP 101/68
[2024-10-12 15:10] LABS: Hematocrit 20.4 % (37.0-53.0); Hemoglobin 6.9 g/dL (13.5-17.5); Mean Corpuscular HGB 25.6 pg (26.0-34.0); Mean Corpuscular HGB Conc 33.8 g/dL (31.5-36.5); Mean Corpuscular Volume 76 fL (80-100); Mean Platelet Volume 9.9 fL (9.1-12.4); Platelet Count 77 K/mm3 (150-400); RDW Coefficient Variation 21.5 % (11.7-14.2); RDW Standard Deviation 55.8 fL (35.1-46.3)
[2024-10-12 15:12] LABS: BASOPHILS ABSOLUTE AUTO 0.02 K/mm3 (0.00-0.23); BASOPHILS PERCENT AUTO 2 % (0-2); EOSINOPHILS ABSOLUTE AUTO 0.01 K/mm3 (0.00-0.68); EOSINOPHILS PERCENT AUTO 1 % (0-6); IMMATURE GRAN PERCENT AUTO 0 % (0-1); LYMPHOCYTES ABSOLUTE AUTO 0.38 K/mm3 (0.84-5.20); LYMPHOCYTES PERCENT AUTO 40 % (21-46); MONOCYTES ABSOLUTE AUTO 0.14 K/mm3 (0.16-1.47); MONOCYTES PERCENT AUTO 15 % (4-13); NEUTROPHILS ABSOLUTE AUTO 0.39 K/mm3 (1.96-9.15); NEUTROPHILS PERCENT AUTO 42 % (41-73)
[2024-10-12 15:13] LABS: White Blood Cell Count 0.94 K/mm3 (4.00-11.30)
[2024-10-12 16:02] LABS: BAND PERCENT MAN 4 % (0-8); BASOPHILS ABSOLUTE MAN 0.01 K/mm3 (0.00-0.23); BASOPHILS PERCENT MAN 2 % (0-2); EOSINOPHILS PERCENT MAN 0 % (0-6); LYMPHOCYTES ABSOLUTE MAN 0.47 K/mm3 (0.84-5.20); LYMPHOCYTES PERCENT MAN 50 % (21-46); MONOCYTES ABSOLUTE MAN 0.09 K/mm3 (0.16-1.47); MONOCYTES PERCENT MAN 10 % (4-13); NEUTROPHILS ABSOLUTE MAN 0.35 K/mm3 (1.96-9.15); SEG NEUTROPHILS PERCENT MAN 34 % (41-73); TOTAL CELLS COUNTED 50
[~2024-10-14 08:05] MED LIST changes: +AMOX-CLAV 875-1 EAC5 PO; +NS 250 ML IV SCH
[2024-10-14 08:16] VITALS: BP 121/77
[2024-10-14 08:30] VITALS: BP 121/77
[2024-10-14 08:48] VITALS: BP 111/63
[2024-10-14 09:45] VITALS: BP 106/65
[2024-10-14 10:09] VITALS: BP 106/60
== END 2024-10-14 10:14 | disposition home or self-care (01) ==
LOC: ATC 08:05
PROVIDERS: Registered Nurse Oncology
DX: C47 Malignant neoplasm of peripheral nerves and autonomic nervous system (principal); D64.9 Anemia, unspecified
CPT/HCPCS: 36430; 36591; 85025; 86850; 86900; 86901; 86923; J1642; J7050; P9016

== ENCOUNTER 2024-11-07 03:53 | Day surgery (SDC) | payer OTHER ==
[~2024-11-07 03:53] MED LIST changes: -NS 250 ML IV SCH
[2024-11-07 10:39] VITALS: BP 132/72
[2024-11-07 11:10] LABS: Hematocrit 24.1 % (37.0-53.0); Hemoglobin 7.9 g/dL (13.5-17.5); Mean Corpuscular HGB 25.7 pg (26.0-34.0); Mean Corpuscular HGB Conc 32.8 g/dL (31.5-36.5); Mean Corpuscular Volume 79 fL (80-100); Mean Platelet Volume 9.5 fL (9.1-12.4); Platelet Count 70 K/mm3 (150-400); RDW Coefficient Variation 14.9 % (11.7-14.2); RDW Standard Deviation 41.7 fL (35.1-46.3); Red Blood Cell Count 3.07 M/mm3 (4.30-5.90)
[2024-11-07 11:28] LABS: BASOPHILS ABSOLUTE AUTO 0.01 K/mm3 (0.00-0.23); BASOPHILS PERCENT AUTO 1 % (0-2); EOSINOPHILS ABSOLUTE AUTO 0.04 K/mm3 (0.00-0.68); EOSINOPHILS PERCENT AUTO 5 % (0-6); IMMATURE GRAN PERCENT AUTO 13 % (0-1); LYMPHOCYTES ABSOLUTE AUTO 0.36 K/mm3 (0.84-5.20); LYMPHOCYTES PERCENT AUTO 45 % (21-46); MONOCYTES ABSOLUTE AUTO 0.03 K/mm3 (0.16-1.47); MONOCYTES PERCENT AUTO 4 % (4-13); NEUTROPHILS ABSOLUTE AUTO 0.26 K/mm3 (1.96-9.15); NEUTROPHILS PERCENT AUTO 32 % (41-73)
== END 2024-11-07 10:44 | disposition home or self-care (01) ==
LOC: ATC 03:53
PROVIDERS: Registered Nurse Oncology
DX: C47 Malignant neoplasm of peripheral nerves and autonomic nervous system (principal); D64.9 Anemia, unspecified; Z87.891 Personal history of nicotine dependence
CPT/HCPCS: 36591; 85025; J1642

== ENCOUNTER 2024-11-10 16:35 | Emergency (ER) | payer OTHER ==
[~2024-11-10] VITALS: Ht 190.5 cm; Wt 108.9 kg
[2024-11-10 17:48] LABS: Hematocrit 19.9 % (37.0-53.0); Hemoglobin 6.5 g/dL (13.5-17.5); Mean Corpuscular HGB 25.4 pg (26.0-34.0); Mean Corpuscular HGB Conc 32.7 g/dL (31.5-36.5); Mean Corpuscular Volume 78 fL (80-100); RDW Coefficient Variation 14.1 % (11.7-14.2); RDW Standard Deviation 39.6 fL (35.1-46.3); Red Blood Cell Count 2.56 M/mm3 (4.30-5.90)
[2024-11-10] MEDS ORDERED: EPINEPHRIN0.3 MG/0.1 IM (17:48)
[2024-11-10 17:50] LABS: BASOPHILS ABSOLUTE AUTO 0.01 K/mm3 (0.00-0.23); BASOPHILS PERCENT AUTO 1 % (0-2); EOSINOPHILS ABSOLUTE AUTO 0.02 K/mm3 (0.00-0.68); EOSINOPHILS PERCENT AUTO 2 % (0-6); IMMATURE GRAN ABSOLUTE AUTO 0.08 K/mm3 (0.00-0.10); IMMATURE GRAN PERCENT AUTO 10 % (0-1); LYMPHOCYTES ABSOLUTE AUTO 0.46 K/mm3 (0.84-5.20); LYMPHOCYTES PERCENT AUTO 55 % (21-46); MONOCYTES ABSOLUTE AUTO 0.11 K/mm3 (0.16-1.47); MONOCYTES PERCENT AUTO 13 % (4-13); NEUTROPHILS ABSOLUTE AUTO 0.16 K/mm3 (1.96-9.15); NEUTROPHILS PERCENT AUTO 19 % (41-73); Platelet Count 30 K/mm3 (150-400)
[2024-11-10 17:51] LABS: White Blood Cell Count 0.84 K/mm3 (4.00-11.30)
[2024-11-10 17:54] LABS: IMMATURE RETIC FRACTION 27.5 % (2.3-16.0); RETICULOCYTE ABSOLUTE 0.0051 M/mm3 (0.0200-0.1100); RETICULOCYTE COUNT PERCENT 0.2 % (0.50-2.50)
[2024-11-10 18:03] LABS: Albumin, Blood 3.6 g/dL (3.4-5.0); Albumin/Globulin Ratio 1.1 (0.8-1.8); Bilirubin, Total 0.6 mg/dL (0.1-1.0); Bun/Creatinine Ratio 13.6 (12.0-20.0); Calcium, Blood 8.7 mg/dL (8.5-10.1); Creatinine, Blood 0.74 mg/dL (0.60-1.20); Globulin, Blood 3.4 g/dL (2.2-4.0); Potassium, Blood 3.3 mmol/L (3.5-5.5)
[2024-11-10] MEDS ORDERED: NS 1,000 ML IV ONE (19:31)
[2024-11-10 20:00] VITALS: BP 104/65
[2024-11-10] MEDS ORDERED: NS 1,000 ML IV SCH (20:25)
== END 2024-11-10 22:44 | disposition home or self-care (01) ==
LOC: ER 16:35
PROVIDERS: Emergency Medicine; Student in an Organized Health Care Education/Training Program
DX: D61.818 Other pancytopenia (principal); Z91.030 Bee allergy status; Z88.5 Allergy status to narcotic agent
CPT/HCPCS: 36430; 71046; 80053; 84484; 85025; 85045; 86850; 86900; 86901; 86923; 99283-25; J1642; J7030; P9040

== ENCOUNTER 2024-11-15 02:27 | Emergency (ER) | payer OTHER ==
[~2024-11-15] VITALS: Ht 190.5 cm; Wt 106.1 kg
[~2024-11-15 02:27] MED LIST changes: +EPINEPHRIN0.3 MG/0.1 IM
[2024-11-15] MEDS ORDERED: OXYC5 PO (02:43)
[2024-11-15] MEDS ORDERED: HYDROCODONE-AC1 EA19 PO (02:43)
[2024-11-15] MEDS ORDERED: PROC25S PR (02:44)
[2024-11-15] MEDS ORDERED: TRAZ50 (02:44)
[2024-11-15] MEDS ORDERED: HYDROmorphone HCl/Pf 1MG SYR IV ONE (02:50)
[2024-11-15] MEDS ORDERED: NS 1,000 ML IV SCH (02:50)
[2024-11-15] MEDS ORDERED: Ondansetron HCl 2 MG / ML 2ML Vial IV ONE (02:50)
[2024-11-15 03:22] LABS: BASOPHILS ABSOLUTE AUTO 0.01 K/mm3 (0.00-0.23); BASOPHILS PERCENT AUTO 0 % (0-2); EOSINOPHILS ABSOLUTE AUTO 0.02 K/mm3 (0.00-0.68); EOSINOPHILS PERCENT AUTO 1 % (0-6); Hematocrit 21.5 % (37.0-53.0); Hemoglobin 7.3 g/dL (13.5-17.5); IMMATURE GRAN ABSOLUTE AUTO 0.02 K/mm3 (0.00-0.10); IMMATURE GRAN PERCENT AUTO 1 % (0-1); LYMPHOCYTES PERCENT AUTO 17 % (21-46); MONOCYTES ABSOLUTE AUTO 0.31 K/mm3 (0.16-1.47); MONOCYTES PERCENT AUTO 13 % (4-13); Mean Corpuscular HGB 26.1 pg (26.0-34.0); Mean Corpuscular Volume 77 fL (80-100); NEUTROPHILS ABSOLUTE AUTO 1.67 K/mm3 (1.96-9.15); NEUTROPHILS PERCENT AUTO 69 % (41-73); NRBC ABSOLUTE 0.02 K/mm3 (0.00-0.02); NRBC Auto 0.8 /100 WBC (0.0-0.2); Platelet Count 108 K/mm3 (150-400); RDW Coefficient Variation 14.5 % (11.7-14.2); RDW Standard Deviation 40.6 fL (35.1-46.3); White Blood Cell Count 2.43 K/mm3 (4.00-11.30)
[2024-11-15 03:24] LABS: Mean Platelet Volume 10.3 fL (9.1-12.4)
[2024-11-15 03:47] LABS: Albumin/Globulin Ratio 0.7 (0.8-1.8); Bilirubin, Total 0.6 mg/dL (0.1-1.0); Calcium, Blood 8.1 mg/dL (8.5-10.1); Creatinine, Blood 0.88 mg/dL (0.60-1.20); Globulin, Blood 4.3 g/dL (2.2-4.0); Total Protein, Blood 7.3 g/dL (6.4-8.2)
[2024-11-15] MEDS ORDERED: Potassium Chloride 20 MEQ TabCR PO ONE (04:00)
[2024-11-15] MEDS ORDERED: RX Prepack 6 Tabs Oxycodone 5mg UD ONE (05:00)
[2024-11-15] MEDS ORDERED: OXYACE7.5T PO (05:02)
[2024-11-15 05:13] VITALS: BP 104/52
== END 2024-11-15 05:13 | disposition home or self-care (01) ==
LOC: ER 02:27
PROVIDERS: Emergency Medicine
DX: M79.661 Pain in right lower leg (principal); D61.818 Other pancytopenia; E87.6 Hypokalemia; F17.210 Nicotine dependence, cigarettes, uncomplicated; Z79.899 Other long term (current) drug therapy; Z91.030 Bee allergy status
CPT/HCPCS: 73590; 80053; 85025; 86850; 86900; 86901; 93971; 96361; 96374; 96375; 99284-25; A9270; J1171; J2405; J7030

== ENCOUNTER 2024-11-16 02:34 | Day surgery (SDC) | payer OTHER ==
[2024-11-16 10:26] VITALS: BP 108/70
== END 2024-11-16 10:33 | disposition home or self-care (01) ==
LOC: ATC 02:34
DX: C47 Malignant neoplasm of peripheral nerves and autonomic nervous system (principal); D64.9 Anemia, unspecified; Z87.891 Personal history of nicotine dependence; Z79.899 Other long term (current) drug therapy; Z91.038 Other insect allergy status

== ENCOUNTER 2024-11-18 00:08 | Inpatient (IN) | payer OTHER ==
[~2024-11-18] VITALS: Ht 182.9 cm; Wt 99.3 kg
[2024-11-18 20:34] VITALS: BP 94/55
== END 2024-11-18 21:40 | disposition short-term general hospital (02) | DRG 603 ==
LOC: ER 00:08 → ERHOLD 06:46 → MEDS 09:42
PROVIDERS: ADMIT Internal Medicine
PROC: 0S9F3ZZ Drainage of Right Ankle Joint, Percutaneous Approach (ICD-10-PCS; principal; 2024-11-18)
DX: L02.415 Cutaneous abscess of right lower limb (principal); C49.9 Malignant neoplasm of connective and soft tissue, unspecified; C79.51 Secondary malignant neoplasm of bone; E87.1 Hypo-osmolality and hyponatremia; D68.00 Von Willebrand disease, unspecified; D61.818 Other pancytopenia; M25.471 Effusion, right ankle; G47.00 Insomnia, unspecified; F17.210 Nicotine dependence, cigarettes, uncomplicated; E87.6 Hypokalemia; R74.01 Elevation of levels of liver transaminase levels; D63.0 Anemia in neoplastic disease; E88.09 Other disorders of plasma-protein metabolism, not elsewhere classified; Z79.899 Other long term (current) drug therapy; Z51.11 Encounter for antineoplastic chemotherapy; Z91.030 Bee allergy status; Z79.891 Long term (current) use of opiate analgesic

== ENCOUNTER 2025-01-10 03:46 | Day surgery (SDC) | payer OTHER ==
[~2025-01-10 03:46] MED LIST changes: +GABA100 PO; +PROC25S PR; +TRAZ50
[2025-01-10 09:31] VITALS: BP 116/78
[2025-01-10 10:22] LABS: BASOPHILS ABSOLUTE AUTO 0.00 K/mm3 (0.00-0.23); BASOPHILS PERCENT AUTO 0 % (0-2); EOSINOPHILS ABSOLUTE AUTO 0.04 K/mm3 (0.00-0.68); EOSINOPHILS PERCENT AUTO 3 % (0-6); Hematocrit 25.0 % (37.0-53.0); Hemoglobin 7.9 g/dL (13.5-17.5); IMMATURE GRAN ABSOLUTE AUTO 0.00 K/mm3 (0.00-0.10); IMMATURE GRAN PERCENT AUTO 0 % (0-1); LYMPHOCYTES ABSOLUTE AUTO 0.68 K/mm3 (0.84-5.20); LYMPHOCYTES PERCENT AUTO 43 % (21-46); MONOCYTES ABSOLUTE AUTO 0.22 K/mm3 (0.16-1.47); MONOCYTES PERCENT AUTO 14 % (4-13); Mean Corpuscular HGB Conc 31.6 g/dL (31.5-36.5); Mean Corpuscular Volume 81 fL (80-100); NEUTROPHILS ABSOLUTE AUTO 0.65 K/mm3 (1.96-9.15); NEUTROPHILS PERCENT AUTO 41 % (41-73); NRBC ABSOLUTE 0.03 K/mm3 (0.00-0.02); NRBC Auto 1.9 /100 WBC (0.0-0.2); Platelet Count 115 K/mm3 (150-400); RDW Coefficient Variation 19.8 % (11.7-14.2); RDW Standard Deviation 55.0 fL (35.1-46.3)
--- NOTE | 2025-01-10 13:10 | NUR ---
LABS FAXED TO DR GLASS PER REQUEST
== END 2025-01-10 09:39 | disposition home or self-care (01) ==
LOC: ATC 03:46
PROVIDERS: Registered Nurse Oncology
DX: C47 Malignant neoplasm of peripheral nerves and autonomic nervous system (principal); D63.0 Anemia in neoplastic disease; C78.01 Secondary malignant neoplasm of right lung; C78.02 Secondary malignant neoplasm of left lung; D61.810 Antineoplastic chemotherapy induced pancytopenia; T45.1X5A Adverse effect of antineoplastic and immunosuppressive drugs, initial encounter; D68.00 Von Willebrand disease, unspecified; Z87.891 Personal history of nicotine dependence; Z79.899 Other long term (current) drug therapy; Z91.038 Other insect allergy status
CPT/HCPCS: 36591; 85025; J1642

== ENCOUNTER 2025-01-18 01:58 | Day surgery (SDC) | payer OTHER ==
[2025-01-18 10:41] VITALS: BP 112/69
[2025-01-18 11:08] LABS: BASOPHILS ABSOLUTE AUTO 0.01 K/mm3 (0.00-0.23); BASOPHILS PERCENT AUTO 0 % (0-2); EOSINOPHILS ABSOLUTE AUTO 0.04 K/mm3 (0.00-0.68); EOSINOPHILS PERCENT AUTO 2 % (0-6); Hematocrit 27.3 % (37.0-53.0); Hemoglobin 8.3 g/dL (13.5-17.5); IMMATURE GRAN ABSOLUTE AUTO 0.03 K/mm3 (0.00-0.10); IMMATURE GRAN PERCENT AUTO 1 % (0-1); LYMPHOCYTES ABSOLUTE AUTO 0.84 K/mm3 (0.84-5.20); LYMPHOCYTES PERCENT AUTO 37 % (21-46); MONOCYTES ABSOLUTE AUTO 0.34 K/mm3 (0.16-1.47); MONOCYTES PERCENT AUTO 15 % (4-13); Mean Corpuscular HGB Conc 30.4 g/dL (31.5-36.5); Mean Corpuscular Volume 83 fL (80-100); NEUTROPHILS ABSOLUTE AUTO 1.03 K/mm3 (1.96-9.15); NEUTROPHILS PERCENT AUTO 45 % (41-73); NRBC ABSOLUTE 0.03 K/mm3 (0.00-0.02); NRBC Auto 1.3 /100 WBC (0.0-0.2); Platelet Count 246 K/mm3 (150-400); RDW Coefficient Variation 20.9 % (11.7-14.2); RDW Standard Deviation 60.9 fL (35.1-46.3)
== END 2025-01-18 10:31 | disposition home or self-care (01) ==
LOC: ATC 01:58
PROVIDERS: Registered Nurse Oncology
DX: C47 Malignant neoplasm of peripheral nerves and autonomic nervous system (principal); C78.2 Secondary malignant neoplasm of pleura; D61.810 Antineoplastic chemotherapy induced pancytopenia; T45.1X5A Adverse effect of antineoplastic and immunosuppressive drugs, initial encounter
CPT/HCPCS: 36591; 85025; J1642

== ENCOUNTER 2025-01-31 02:56 | Day surgery (SDC) | payer OTHER ==
[~2025-01-31 02:56] MED LIST changes: -TRAZ50; +TRAZ50 PO
[2025-01-31 15:36] VITALS: BP 133/81
[2025-01-31 16:23] LABS: Hematocrit 31.1 % (37.0-53.0); Hemoglobin 10.0 g/dL (13.5-17.5); Mean Corpuscular HGB Conc 32.2 g/dL (31.5-36.5); Mean Corpuscular Volume 79 fL (80-100); NRBC ABSOLUTE 0.24 K/mm3 (0.00-0.02); NRBC Auto 0.8 /100 WBC (0.0-0.2); Platelet Count 295 K/mm3 (150-400); RDW Coefficient Variation 18.0 % (11.7-14.2); RDW Standard Deviation 48.8 fL (35.1-46.3)
[2025-01-31 17:59] LABS: BASOPHILS ABSOLUTE MAN 0.00 K/mm3 (0.00-0.23); BASOPHILS PERCENT MAN 0 % (0-2); EOSINOPHILS ABSOLUTE MAN 0.31 K/mm3 (0.00-0.68); EOSINOPHILS PERCENT MAN 1 % (0-6); LYMPHOCYTES ABSOLUTE MAN 2.84 K/mm3 (0.84-5.20); LYMPHOCYTES PERCENT MAN 9 % (21-46); MONOCYTES ABSOLUTE MAN 0.00 K/mm3 (0.16-1.47); MONOCYTES PERCENT MAN 0 % (4-13); NEUTROPHILS ABSOLUTE MAN 28.45 K/mm3 (1.96-9.15); SEG NEUTROPHILS PERCENT MAN 90 % (41-73)
== END 2025-01-31 15:47 | disposition home or self-care (01) ==
LOC: ATC 02:56
PROVIDERS: Registered Nurse Oncology
DX: C47 Malignant neoplasm of peripheral nerves and autonomic nervous system (principal); D63.0 Anemia in neoplastic disease; C78.01 Secondary malignant neoplasm of right lung; C78.02 Secondary malignant neoplasm of left lung; D61.810 Antineoplastic chemotherapy induced pancytopenia; T45.1X5A Adverse effect of antineoplastic and immunosuppressive drugs, initial encounter
CPT/HCPCS: 36591; 85025; J1642

== ENCOUNTER 2025-02-13 11:07 | Day surgery (SDC) | payer OTHER ==
[2025-02-13 11:58] VITALS: BP 109/61
[2025-02-13 12:09] LABS: BASOPHILS ABSOLUTE AUTO 0.01 K/mm3 (0.00-0.23); BASOPHILS PERCENT AUTO 0 % (0-2); EOSINOPHILS ABSOLUTE AUTO 0.25 K/mm3 (0.00-0.68); EOSINOPHILS PERCENT AUTO 8 % (0-6); Hematocrit 28.8 % (37.0-53.0); Hemoglobin 8.8 g/dL (13.5-17.5); IMMATURE GRAN ABSOLUTE AUTO 0.02 K/mm3 (0.00-0.10); IMMATURE GRAN PERCENT AUTO 1 % (0-1); LYMPHOCYTES ABSOLUTE AUTO 0.83 K/mm3 (0.84-5.20); LYMPHOCYTES PERCENT AUTO 28 % (21-46); MONOCYTES ABSOLUTE AUTO 0.31 K/mm3 (0.16-1.47); MONOCYTES PERCENT AUTO 10 % (4-13); Mean Corpuscular HGB Conc 30.6 g/dL (31.5-36.5); Mean Corpuscular Volume 81 fL (80-100); NEUTROPHILS ABSOLUTE AUTO 1.57 K/mm3 (1.96-9.15); NEUTROPHILS PERCENT AUTO 52 % (41-73); NRBC ABSOLUTE 0.00 K/mm3 (0.00-0.02); NRBC Auto 0.0 /100 WBC (0.0-0.2); Platelet Count 168 K/mm3 (150-400); RDW Coefficient Variation 18.0 % (11.7-14.2); RDW Standard Deviation 52.0 fL (35.1-46.3)
== END 2025-02-13 11:50 | disposition home or self-care (01) ==
LOC: ATC 11:07
PROVIDERS: Registered Nurse Oncology
DX: C47 Malignant neoplasm of peripheral nerves and autonomic nervous system (principal); C78.00 Secondary malignant neoplasm of unspecified lung; D64.9 Anemia, unspecified; C49.9 Malignant neoplasm of connective and soft tissue, unspecified
CPT/HCPCS: 36591; 85025; J1642

== ENCOUNTER 2025-05-19 22:10 | Observation (INO) | payer OTHER ==
[~2025-05-19] VITALS: Ht 190.5 cm; Wt 101.5 kg
[2025-05-19 22:55] LABS: BASOPHILS ABSOLUTE AUTO 0.02 K/mm3 (0.00-0.23); BASOPHILS PERCENT AUTO 1 % (0-2); EOSINOPHILS ABSOLUTE AUTO 0.07 K/mm3 (0.00-0.68); EOSINOPHILS PERCENT AUTO 2 % (0-6); Hematocrit 31.2 % (37.0-53.0); Hemoglobin 9.5 g/dL (13.5-17.5); IMMATURE GRAN ABSOLUTE AUTO 0.02 K/mm3 (0.00-0.10); IMMATURE GRAN PERCENT AUTO 1 % (0-1); LYMPHOCYTES ABSOLUTE AUTO 0.94 K/mm3 (0.84-5.20); LYMPHOCYTES PERCENT AUTO 26 % (21-46); MONOCYTES ABSOLUTE AUTO 0.43 K/mm3 (0.16-1.47); MONOCYTES PERCENT AUTO 12 % (4-13); Mean Corpuscular HGB Conc 30.4 g/dL (31.5-36.5); Mean Corpuscular Volume 70 fL (80-100); NEUTROPHILS ABSOLUTE AUTO 2.08 K/mm3 (1.96-9.15); NEUTROPHILS PERCENT AUTO 58 % (41-73); NRBC ABSOLUTE 0.00 K/mm3 (0.00-0.02); NRBC Auto 0.0 /100 WBC (0.0-0.2); Platelet Count 182 K/mm3 (150-400); RDW Coefficient Variation 16.4 % (11.7-14.2); RDW Standard Deviation 40.6 fL (35.1-46.3)
[2025-05-19] MEDS ORDERED: HYDROmorphone HCl/Pf 1MG SYR IM ONE (23:05)
[2025-05-19] MEDS ORDERED: HYDROmorphone HCl/Pf 1MG SYR IV ONE (23:05)
[2025-05-19 23:20] LABS: Ethanol (Alcohol), Blood, Med <3 mg/dL; Salicylate <1.7 mg/dL (2.8-20.0); Thyroid Stimulating Hormone 2.320 uIU/mL (0.360-4.800)
[2025-05-19 23:31] LABS: Acetaminophen, Random <2.0 ug/mL (10.0-30.0); Alanine Aminotransfer (ALT/SGP 20 U/L (12-78); Albumin, Blood 4.1 g/dL (3.4-5.0); Albumin/Globulin Ratio 1.2 (0.8-1.8); Anion Gap 8 mmol/L (3-11); Aspartate Aminotrans (AST/SGOT 11 U/L (12-37); Bilirubin, Total 0.6 mg/dL (0.1-1.0); Blood Urea Nitrogen 12 mg/dL (8-24); CO2, Blood 25 mmol/L (21-32); Calcium, Blood 9.0 mg/dL (8.5-10.1); Chloride, Blood 109 mmol/L (98-108); Creatinine, Blood 1.04 mg/dL (0.60-1.20); Globulin, Blood 3.4 g/dL (2.2-4.0); Glucose, Blood 102 mg/dL (70-99); Potassium, Blood 3.7 mmol/L (3.5-5.5); Sodium, Blood 138 mmol/L (136-145); Total Protein, Blood 7.5 g/dL (6.4-8.2)
[2025-05-20] MEDS ORDERED: HYDROmorphone HCl/Pf 1MG SYR IV PRN ×2 (00:30→00:50)
[2025-05-20] MEDS ORDERED: FLU VACC TS2025-26(6MOS UP)/PF 45 MCG/0.5 ML SYRINGE IM SCH (00:50)
[2025-05-20] MEDS ORDERED: Naloxone HCl 0.4MG / ML 1ML Vial IV PRN (00:50)
[2025-05-20] MEDS ORDERED: Ondansetron HCl 2 MG / ML 2ML Vial IV PRN (00:50)
[2025-05-20 01:08] LABS: Bilirubin, Urine Neg (Neg); Glucose Qualitative, Urine Neg (Neg); Ketones, Urine Neg (Neg); Leukocyte Esterase, Urine Neg (Neg); Protein, Urine 2+ (Neg); Source, Urine Clean Catch; Specific Gravity, Urine 1.030 (1.003-1.022); Urobilinogen, Urine NORM (Normal)
[2025-05-20 01:09] LABS: Color, Urine Yellow (P-Yellow); U Amphetamine Screen Not Detected; U Barbiturate Screen Not Detected; U Benzodiazapine Screen Not Detected; U Buprenorphine Screen Not Detected; U Cannabinoids Screen Not Detected; U Cocaine Screen Not Detected; U Methadone Screen Not Detected; U Methamphetamine Screen Not Detected; U Opiates Screen DETECTED; U Oxycodone Screen Not Detected; U Phencyclidine Screen Not Detected
[2025-05-20 01:14] LABS: Red Blood Cells, Urine Not Seen /hpf (0-2); White Blood Cells, Urine 0-2 /hpf (0-5)
[2025-05-20 01:55] VITALS: BP 110/77
[2025-05-20] MEDS ORDERED: DABI150C PO (02:00)
[2025-05-20 05:22] VITALS: BP 102/65
--- NOTE | 2025-05-20 05:42 | NUR ---
PT ADMITTED WITH SI. PT ARRIVED TO THE MEDICAL FLOOR IN A W/C AND HIS FATHER WELL THE 1:1 SITTER. PT IS ON CLSOE OBSERVATION DUE TO SI. PT BROUGHT ALL HIS BELONINGS WITH HIM. PATIENT WEARING BLUE LAQUITA SCRUBS. PT IS ON 2MD HOLD AND WILL HAVE A SITTER 31/01. FATHER IN THE ROOM RESTING IN A RECLINER. BED AT THE LOWEST LEVEL, SHORT CALL LIGHT WITHIN REACH. [facility] COMPLET[facility] THE ADMISSION ASSSSMENT, SKIN CHECK WIT H THIS NURSE. BED AT THE LOWEST POSITION, CALL LIGHT W/I REACH. ROOM WAS CHECKED AND EMPTIED OFF FORBIDDEN ITEMS.
--- NOTE | 2025-05-20 06:18 | NUR ---
HIGH SI RISK 1;1 SITTER, CHARGE NURSE NOTIFIED. WILL CONTINUE CARE.
[2025-05-20 07:14] VITALS: BP 89/54
[2025-05-20 07:16] VITALS: BP 94/67
[2025-05-20 08:50] LABS: BASOPHILS ABSOLUTE AUTO 0.01 K/mm3 (0.00-0.23); BASOPHILS PERCENT AUTO 0 % (0-2); EOSINOPHILS ABSOLUTE AUTO 0.13 K/mm3 (0.00-0.68); EOSINOPHILS PERCENT AUTO 6 % (0-6); Hematocrit 31.0 % (37.0-53.0); Hemoglobin 9.4 g/dL (13.5-17.5); IMMATURE GRAN ABSOLUTE AUTO 0.02 K/mm3 (0.00-0.10); IMMATURE GRAN PERCENT AUTO 1 % (0-1); LYMPHOCYTES ABSOLUTE AUTO 0.78 K/mm3 (0.84-5.20); LYMPHOCYTES PERCENT AUTO 34 % (21-46); MONOCYTES ABSOLUTE AUTO 0.35 K/mm3 (0.16-1.47); MONOCYTES PERCENT AUTO 15 % (4-13); Mean Corpuscular HGB Conc 30.3 g/dL (31.5-36.5); Mean Corpuscular Volume 71 fL (80-100); NEUTROPHILS ABSOLUTE AUTO 1.04 K/mm3 (1.96-9.15); NEUTROPHILS PERCENT AUTO 45 % (41-73); NRBC ABSOLUTE 0.00 K/mm3 (0.00-0.02); NRBC Auto 0.0 /100 WBC (0.0-0.2); Platelet Count 164 K/mm3 (150-400); RDW Coefficient Variation 16.5 % (11.7-14.2); RDW Standard Deviation 41.8 fL (35.1-46.3)
[2025-05-20] MEDS ORDERED: Enoxaparin 40 MG/0.4 ML SYR SC SCH (09:00)
[2025-05-20 09:47] LABS: Alanine Aminotransfer (ALT/SGP 21.0 U/L (12-78); Albumin, Blood 3.8 g/dL (3.4-5.0); Albumin/Globulin Ratio 1.1 (0.8-1.8); Anion Gap 6.0 mmol/L (3-11); Aspartate Aminotrans (AST/SGOT 12.0 U/L (12-37); Bilirubin, Total 0.6 mg/dL (0.1-1.0); Blood Urea Nitrogen 14.0 mg/dL (8-24); CO2, Blood 29.0 mmol/L (21-32); Calcium, Blood 8.8 mg/dL (8.5-10.1); Chloride, Blood 107.0 mmol/L (98-108); Creatinine, Blood 0.87 mg/dL (0.60-1.20); Globulin, Blood 3.4 g/dL (2.2-4.0); Glucose, Blood 111.0 mg/dL (70-99); Potassium, Blood 3.3 mmol/L (3.5-5.5); Sodium, Blood 139.0 mmol/L (136-145); Total Protein, Blood 7.2 g/dL (6.4-8.2)
[2025-05-20] MEDS ORDERED: [UNRECOGNIZED DRUG - OTHER] PO (10:19)
[2025-05-20] MEDS ORDERED: NS 250 ML IV PRN (10:55)
[2025-05-20 15:53] VITALS: BP 114/72
[2025-05-20] MEDS ORDERED: MASOPHEN325 M1 PO (16:23)
--- NOTE | 2025-05-20 16:59 | NUR ---
PT DISCHARGED AT 1450 WITH FATHER TO TRANSPORT. PT INITIALLY WAS HIGH SI AT BEGINGING OF SHIFT, BUT TALKED EXTENSIVELY WITH YANE FROM [facility] AND VERBALIZED HE WAS NOT LONGER HAVE SI THOUGHTS OR PLANS AND THEN DR ALBERTS EVALUATED AND HOLD WAS DROPPED. PT HAS BEEN AOX4 AND COOPERATIVE OF CARE. PT AND FATHER HAD DISCHARGE PAPERWORK REVIEWED AND EDUCATIONAL MATERIAL SENT WITH THEM. PLAN IS TO FOLLOW UP WITH CARE THROUGH [facility] DR ALBERTS STATED. PT WAS TO RETURN HOME WITH HIS FATHER. PT ESCORTED OUT VIA WHEELCHAIR WITH PERSONAL BELONINGS.
== END 2025-05-20 16:30 | disposition home or self-care (01) ==
LOC: ER 22:10 → MEDS 22:11 → ERHOLD 22:11 → MEDS 05-20 01:53 → ENPENDDIS 05-20 15:23 → MEDS 05-20 16:30
PROVIDERS: Emergency Medicine; ADMIT Student in an Organized Health Care Education/Training Program
DX: F43.21 Adjustment disorder with depressed mood (principal); R45.851 Suicidal ideations; C47 Malignant neoplasm of peripheral nerves and autonomic nervous system; C78.02 Secondary malignant neoplasm of left lung; F17.210 Nicotine dependence, cigarettes, uncomplicated; E87.6 Hypokalemia; Z91.030 Bee allergy status
CPT/HCPCS: 36415; 80053; 80320; 81001; 84439; 84443; 85025; 96374; 96376; 99285-25; A9270; G0378; G0480; J1171

== ENCOUNTER 2025-07-05 02:38 | Day surgery (SDC) | payer OTHER ==
[~2025-07-05 02:38] MED LIST changes: +DABI150C PO; +MASOPHEN325 M1 PO; +[UNRECOGNIZED DRUG - OTHER] PO
[2025-07-05 09:10] VITALS: BP 115/72
[2025-07-05 09:37] LABS: BASOPHILS ABSOLUTE AUTO 0.02 K/mm3 (0.00-0.23); BASOPHILS PERCENT AUTO 1 % (0-2); EOSINOPHILS ABSOLUTE AUTO 0.15 K/mm3 (0.00-0.68); EOSINOPHILS PERCENT AUTO 5 % (0-6); Hematocrit 30.7 % (37.0-53.0); Hemoglobin 9.2 g/dL (13.5-17.5); IMMATURE GRAN ABSOLUTE AUTO 0.02 K/mm3 (0.00-0.10); IMMATURE GRAN PERCENT AUTO 1 % (0-1); LYMPHOCYTES ABSOLUTE AUTO 0.87 K/mm3 (0.84-5.20); LYMPHOCYTES PERCENT AUTO 28 % (21-46); MONOCYTES ABSOLUTE AUTO 0.41 K/mm3 (0.16-1.47); MONOCYTES PERCENT AUTO 13 % (4-13); Mean Corpuscular HGB Conc 30.0 g/dL (31.5-36.5); Mean Corpuscular Volume 69 fL (80-100); NEUTROPHILS ABSOLUTE AUTO 1.64 K/mm3 (1.96-9.15); NEUTROPHILS PERCENT AUTO 53 % (41-73); NRBC ABSOLUTE 0.00 K/mm3 (0.00-0.02); NRBC Auto 0.0 /100 WBC (0.0-0.2); Platelet Count 185 K/mm3 (150-400); RDW Coefficient Variation 19.9 % (11.7-14.2); RDW Standard Deviation 49.2 fL (35.1-46.3)
--- NOTE | 2025-07-05 10:46 | NUR ---
Lab results from today faxed to
== END 2025-07-05 09:19 | disposition home or self-care (01) ==
LOC: ATC 02:38
DX: C47 Malignant neoplasm of peripheral nerves and autonomic nervous system (principal); C78.01 Secondary malignant neoplasm of right lung; C78.02 Secondary malignant neoplasm of left lung
CPT/HCPCS: 85025; J1642